=== PATIENT | female | born 1995 | race Caucasian/White ===

== ENCOUNTER 2016-12-14 21:06 | Emergency (ER) | payer OTHER ==
--- NOTE | 2016-12-14 21:19 | PDOC ---
Rapid Medical Evaluation Chief Complaint: Nausea/Vomiting Time Seen by Provider: 12/14/16 21:18 Medical Evaluation: Allergies Allergy/AdvReac Type Severity Reaction Status Date / Time No Known Allergies Allergy Verified 05/11/15 02:41 12/14/16 21:18 I have performed a brief in-person evaluation of this patient. The patient presents with a chief complaint of: epigastric pain, n/v, h/o cholecystectomy Pertinent physical exam findings:+ mild epigastric tenderness I have ordered the following: cbc, cmp, lipase, ruq u/s, UA The patient will proceed to the ED for further evaluation.
[2016-12-14] MEDS ORDERED: MAG HYDROX/AL HYDROX/SIMETH 355 ML ORAL.SUSP PO ONE (21:20)
[2016-12-14] MEDS ORDERED: FAMOTIDINE 20 MG/50 ML IVPB 20 MG in PREMIX 50 IV ONE (21:20)
[2016-12-14 21:21] VITALS: BMI 26.9
--- NOTE | 2016-12-14 21:28 | PDOC ---
History of Present Illness - General History Source: Patient Exam Limitations: No Limitations - History of Present Illness Initial Comments: 12/14/16 21:43 The patient is a 21 year old female with no significant past medical history who presents to the ED with abdominal pain 2 hours prior to arrival. Patient reports she developed abdominal pain about 2 hours ago that became persistent with associated nausea and nonbloody vomiting. Patient denies diarrhea. She states she has an IUD and her LMP was last month. The patient denies fever, chills, cough, SOB, chest pain, and palpitations. Allergies: NKDA Social History: No alcohol, tobacco, or drug use reported. Past Surgical History: appendectomy, cholecystectomy PCP: Dr. Mansoor Feliciano <Diane Gonzalez - Last Filed: 12/15/16 02:34> - General History Source: Patient <OswaldoJesus akers - Last Filed: 12/15/16 02:41> - General Chief Complaint: Pain, Acute Stated Complaint: STOMACH PAIN Time Seen by Provider: 12/14/16 21:18 Past History <Diane Gonzalez - Last Filed: 12/15/16 02:34> - Past Medical History Asthma: No Cancer: No Cardiac Disorders: No Diabetes: No HTN: No Suicide Attempt (Hx): No Seizures: No Thyroid Disease: No - Surgical History Appendectomy: Yes - Immunization History Immunization Up to Date: No - Psycho/Social/Smoking Cessation Hx Anxiety: No Suicidal Ideation: No Smoking Status: No Smoking History: Never smoked Have you smoked in the past 12 months: No Number of Cigarettes Smoked Daily: 0 Hx Alcohol Use: No Drug/Substance Use Hx: No Substance Use Type: None Hx Substance Use Treatment: No <Jesus Armijo - Last Filed: 12/15/16 02:41> - Past Medical History Allergies/Adverse Reactions: Allergies Allergy/AdvReac Type Severity Reaction Status Date / Time No Known Allergies Allergy Verified 12/14/16 21:18 Home Medications: Ambulatory Orders Amox-Tr/K Cl [Augmentin 500Mg Tablet] 1 tab PO BID #14 tablet 12/15/16 Ibuprofen [Motrin] 600 mg PO TID #30 tablet 12/15/16 Pseudoephedrine HCl [Sudafed] 30 mg PO Q6H #20 tablet 12/15/16 Review of Systems - Review of Systems Able to Perform ROS?: Yes Comments:: 12/14/16 21:44 CONSTITUTIONAL: Absent: fever, no chills, no fatigue EYES: Absent: visual changes ENT: Absent: ear pain, no sore throat CARDIOVASCULAR: Absent: chest pain, no palpitations RESPIRATORY: Absent: cough, no SOB GI: +abdominal pain, nausea, vomiting Absent: no constipation, no diarrhea GENITOURINARY: Absent: dysuria, no frequency, no hematuria MUSKULOSKELETAL: Absent: back pain, no arthralgia, no myalgia SKIN: Absent: rash NEURO: Absent: headache <Diane Gonzalez - Last Filed: 12/15/16 02:34> *Physical Exam - Vital Signs Last Vital Signs Temp Pulse Resp BP Pulse Ox 98.7 F 122 H 18 112/57 100 12/14/16 21:19 12/14/16 21:19 12/14/16 21:19 12/14/16 21:19 12/14/16 21:19 - Physical Exam Comments: 12/14/16 21:44 GENERAL: Well-appearing, well-nourished. Mild distress. HEENT: Normocephalic, atraumatic. PERRL, EOM intact. CARDIOVASCULAR: Normal S1, S2. Regular rate and rhythm. PULMONARY: Clear to auscultation bilaterally. ABDOMEN: Soft, non-distended, epigastric tenderness. No rebound or guarding. EXTREMITIES: Normal ROM in all four extremities. No gross deformities. SKIN: Warm, dry. No rash NEUROLOGICAL: No focal neurological deficits. <Diane Gonzalez - Last Filed: 12/15/16 02:34> - Vital Signs Last Vital Signs Temp Pulse Resp BP Pulse Ox 98.7 F 122 H 18 112/57 100 12/14/16 21:19 12/14/16 21:19 12/14/16 21:19 12/14/16 21:19 12/14/16 21:19 <Jesus Armijo - Last Filed: 12/15/16 02:41> ED Treatment Course - LABORATORY CBC & Chemistry Diagram: 12/14/16 21:00 12/14/16 21:00 - RADIOLOGY Radiograph Interpretation: 12/15/16 02:34 EXAM: CT HEAD WITHOUT CONTRAST Reviewed by Imaging salesperson furniture: No acute brain parenchymal abnormality. No hemorrhage, mass or acute territorial infarct. Inflammation paranasal sinuses with near-complete opacification left maxillary sinus. Visualized mastoid air cells clear. <Diane Gonzalez - Last Filed: 12/15/16 02:34> - LABORATORY CBC & Chemistry Diagram: 12/14/16 21:00 12/14/16 21:00 <Jesus Armijo - Last Filed: 12/15/16 02:41> Medical Decision Making - Medical Decision Making 12/15/16 02:39 Dr. Armijo: The scribe's documentation has been prepared under my direction and personally reviewed by me in its entirery. I confirm that the note above accurately reflects all work, treatment, procedures, and medical decision making performed by me. Pt found to have a sinusitis on Ct scan of head. Abdominal US was negative for pathology. Pt Rx Augmentin 500mg PO <Jesus Armijo - Last Filed: 12/15/16 02:41> *DC/Admit/Observation/Transfer - Attestations Scribe Attestion: 12/14/16 21:44 Documentation prepared by Diane Gonzalez, acting as medical receptionist for Jesus Armijo MD <Diane Gonzalez - Last Filed: 12/15/16 02:34> - Discharge Dispostion Admit: No <Jesus Armijo - Last Filed: 12/15/16 02:41> Diagnosis at time of Disposition: Abdominal pain Qualifiers: Abdominal location: right upper quadrant Qualified Code(s): R10.11 - Right upper quadrant pain Sinusitis Qualifiers: Sinusitis location: unspecified location Chronicity: unspecified Qualified Code (s): J32.9 - Chronic sinusitis, unspecified - Discharge Dispostion Disposition: HOME Condition at time of disposition: Stable - Prescriptions Prescriptions: Amox-Tr/K Cl [Augmentin 500Mg Tablet] 1 tab PO BID #14 tablet Ibuprofen [Motrin] 600 mg PO TID #30 tablet Pseudoephedrine HCl [Sudafed] 30 mg PO Q6H #20 tablet - Referrals Referrals: Mansoor Feliciano MD [Primary Care Provider] - Zhou Contreras MD [Staff Physician] - Kendall Driver MD [Staff Physician] - - Patient Instructions Printed Discharge Instructions: DI for Sinusitis, DI for Abdominal Pain-Adult
[2016-12-14] MEDS ORDERED: FAMOTIDINE 20 MG/50 ML IVPB 50 ML IVPB ONE (21:30)
[2016-12-14] MEDS ORDERED: MAG HYDROX/AL HYDROX/SIMETH 30 ML UNIT-DOSE CUP ONE (21:30)
[2016-12-14 21:53] LABS: MCH 27.5 pg (25.7-33.7); MEAN CELL VOLUME 83.3 fl (80-96); MEAN PLT VOLUME 7.8 fl (7.5-11.1); PLATELET COUNT 331 K/MM3 (134-434); RDW 14.8 % (11.6-15.6)
[2016-12-14 22:31] LABS: ALBUMIN 3.9 g/dl (3.4-5.0); ANION GAP 8 (8-16); CALCIUM 8.3 mg/dL (8.5-10.1); CO2 26 mmol/L (21-32); GLUCOSE,RANDOM 93 mg/dL (74-106)
[2016-12-14 22:34] LABS: ALK PHOS 95 U/L (45-117); BILIRUBIN,TOTAL 0.5 mg/dL (0.2-1.0); CREATININE 0.6 mg/dL (0.55-1.02); SGOT/AST 27 U/L (15-37); SGPT/ALT 32 U/L (12-78); TOT PROT 7.3 g/dl (6.4-8.2)
[2016-12-14 23:44] LABS: PLATELET ESTIMATE ADEQUATE (NORMAL)
[2016-12-15] MEDS ORDERED: IBUPROFEN 600 MG TABLET (FP) PO ONE ×2 (02:35→02:42)
[2016-12-15] MEDS ORDERED: AMOX TR/POT CLAV 500MG/125MG TABLETS (FP) PO ONE (02:35)
[2016-12-15] MEDS ORDERED: AMOX TR/POT CLAV 500MG/125MG TABLETS (FP) ONE (02:41)
[2016-12-15] MEDS ORDERED: PSEUDOEPHEDRINE HCL 60 MG TABLET ONE (02:44)
[2016-12-15] MEDS ORDERED: PSEUDOEPHEDRINE HCL 30 MG TABLET PO SCH (02:45)
[2016-12-15 02:55] VITALS: BP 112/70; PULSE 99; TEMP 98.2
== END 2016-12-15 02:55 | disposition home or self-care (01) ==
LOC: JER 21:06
DX: R10.12 Left upper quadrant pain (principal); J32.9 Chronic sinusitis, unspecified
CPT/HCPCS: 36415; 70450-TC; 76705-TC; 80053; 83690; 84703; 85025; 99281-25

== ENCOUNTER 2017-05-14 14:23 | Emergency (ER) | payer OTHER ==
[2017-05-14 14:27] VITALS: BMI 28.7
--- NOTE | 2017-05-14 15:32 | PDOC ---
History of Present Illness - General History Source: Patient Exam Limitations: No Limitations - History of Present Illness Initial Comments: 05/14/17 16:13 The patient is a 21-year-old female A2 who is approximately 8 weeks with significant PMH of hemorrhoids, genital herpes, asthma, who presents with diffuse abdominal pain that began yesterday. Her abdominal pain radiates to her back (worse on the right side) and right lower extremity. She describes the pain as continuous since yesterday and 8/10 in severity. Patient reports diarrhea and bright red blood upon wiping. Patient reports nausea. She also notes tingling in right upper and right lower extremities. She reports a white mucousy vaginal discharge, but denies abnormal vaginal smell. Patient reports wheezing after exertion. Patient notes taking Tylenol but it did not alleviate her symptoms.The patient came to the ER after her AUTOMOTIVE PAINTER HELPER referred her. Patient denies dysuria. Patient denies vaginal bleeding. Patient denies travel. Patient denies cigarette, alcohol, and drug use. Patient reports a previous cholecystectomy and appendectomy. Patient reports taking iron pills and vitamins. Patient reports a FMH of diabetes. <Oren Massey - Last Filed: 05/14/17 16:42> <Ramila Morelos - Last Filed: 05/14/17 19:23> - General Chief Complaint: Pain Stated Complaint: ABD PAIN (8 WKS ) Time Seen by Provider: 05/14/17 15:31 Past History <Oern Massey - Last Filed: 05/14/17 16:42> - Past Medical History Asthma: No Cancer: No Cardiac Disorders: No Diabetes: No HTN: No Suicide Attempt (Hx): No Seizures: No Thyroid Disease: No Other medical history: DENIES. - Surgical History Abdominal Surgery: Yes Appendectomy: Yes Cholecystectomy: Yes - Immunization History Immunization Up to Date: No - Psycho/Social/Smoking Cessation Hx Anxiety: No Suicidal Ideation: No Smoking Status: No Smoking History: Never smoked Have you smoked in the past 12 months: No Number of Cigarettes Smoked Daily: 0 Hx Alcohol Use: No Drug/Substance Use Hx: No Substance Use Type: None Hx Substance Use Treatment: No <Ramila Morelos - Last Filed: 05/14/17 19:23> - Past Medical History Allergies/Adverse Reactions: Allergies Allergy/AdvReac Type Severity Reaction Status Date / Time No Known Allergies Allergy Verified 05/14/17 14:26 Home Medications: Ambulatory Orders Pnv No.122/Iron/Folic Acid [ Multi Tablet] 1 each PO DAILY 05/14/17 Review of Systems - Review of Systems Able to Perform ROS?: Yes Comments:: 05/14/17 16:14 ADULT ROS GENERAL/CONSTITUTIONAL: No fever or chills. No weakness. HEAD, EYES, EARS, NOSE AND THROAT: No change in vision. No ear pain or discharge. No sore throat. CARDIOVASCULAR: No chest pain or palpitations. No lightheadedness.. RESPIRATORY: +Wheezing upon exertion. No cough or hemoptysis. GASTROINTESTINAL:; +Diffuse abdominal pain (radiates to right flank and right lower extremity) +Diarrhea (red blood upon wiping), + Nausea. No vomiting or constipation. GENITOURINARY: +White mucousy vaginal discharge. No dysuria, frequency, or change in urination. No vaginal bleeding. MUSCULOSKELETAL: No joint or muscle swelling or pain. No neck pain.. SKIN: No rash NEUROLOGIC: +Right upper and right lower extremity tingling. No headache, vertigo, loss of consciousness. ENDOCRINE: No increased thirst. HEMATOLOGIC/LYMPHATIC: No anemia, easy bleeding, or history of blood clots. ALLERGIC/IMMUNOLOGIC: No hives or skin allergy. <Oren Massey - Last Filed: 05/14/17 16:42> *Physical Exam - Vital Signs Last Vital Signs Temp Pulse Resp BP Pulse Ox 98.2 F 83 18 125/65 99 05/14/17 14:24 05/14/17 14:24 05/14/17 14:24 05/14/17 14:24 05/14/17 14:24 - Physical Exam Comments: 05/14/17 16:42 ADULT EXAM GENERAL: Awake, alert, and fully oriented, in no acute distress HEAD: No signs of trauma EYES: PERRLA, EOMI, sclera anicteric, conjunctiva clear ENT: Auricles normal inspection, hearing grossly normal, nares patent, oropharynx clear without exudates. Moist mucosa NECK: Normal ROM, supple, no lymphadenopathy, JVD, or masses LUNGS: Breath sounds equal, clear to auscultation bilaterally. No wheezes, and no crackles HEART: Regular rate and rhythm, normal S1 and S2, no murmurs, rubs or gallops ABDOMEN: Soft, nontender, normoactive bowel sounds. No guarding, no rebound. No masses EXTREMITIES: Normal range of motion, no edema. No clubbing or cyanosis. No cords, erythema, or tenderness NEUROLOGICAL: Cranial nerves II through XII grossly intact. Normal speech, normal gait SKIN: Warm, Dry, normal turgor, no rashes or lesions noted. <Oren Massey - Last Filed: 05/14/17 16:42> - Vital Signs Last Vital Signs Temp Pulse Resp BP Pulse Ox 98.2 F 83 18 125/65 99 05/14/17 14:24 05/14/17 14:24 05/14/17 14:24 05/14/17 14:24 05/14/17 14:24 - Physical Exam Comments: : No external lesions. +Moderate white discharge, no odor. Os closed. +R adnexal tenderness. <Ramila Moerlos - Last Filed: 05/14/17 19:23> ED Treatment Course - LABORATORY CBC & Chemistry Diagram: 05/14/17 15:40 05/14/17 15:40 <Oren Massey - Last Filed: 05/14/17 16:42> - LABORATORY CBC & Chemistry Diagram: 05/14/17 15:40 05/14/17 15:40 <Ramila Morelos - Last Filed: 05/14/17 19:23> Medical Decision Making - Medical Decision Making 05/14/17 17:[address] Campbell. Awaiting ultrasound to r/o ectopic. <Ramila Morelos - Last Filed: 05/14/17 19:23> *DC/Admit/Observation/Transfer - Attestations Scribe Attestion: 05/14/17 16:42 Documentation prepared by Oren Massey, acting as medical appliance maker for Ramila Morelos MD. <Oren Massey - Last Filed: 05/14/17 16:42> <Ramila Morelos - Last Filed: 05/14/17 19:23> Diagnosis at time of Disposition: Threatened in early - Discharge Dispostion Disposition: HOME Condition at time of disposition: Stable - Referrals Referrals: Mansoor Feliciano MD [Primary Care Provider] - - Patient Instructions Printed Discharge Instructions: DI for -- Discomforts and Remedies Additional Instructions: please [id number] with your astronaut mission specialist
[2017-05-14 16:24] LABS: BASOPHIL 0.3 % (0-2.0); EOSINOPHIL 0.7 % (0-4.5); MEAN CELL VOLUME 88.3 fl (80-96); MEAN PLT VOLUME 8.5 fl (7.5-11.1); NEUTROPHILS 71.7 % (42.8-82.8); PLATELET COUNT 279 K/MM3 (134-434); WHITE BLOOD COUNT 7.9 K/mm3 (4.0-10.0)
[2017-05-14 16:40] LABS: URINE APPEARANCE CLEAR; URINE BILIRUBIN NEGATIVE (NEGATIVE); URINE BLOOD NEGATIVE (NEGATIVE); URINE COLOR YELLOW; URINE GLUCOSE (UA) NEGATIVE (NEGATIVE); URINE KETONE NEGATIVE (NEGATIVE); URINE LEUK ESTERASE NEGATIVE (NEGATIVE); URINE NITRITE NEGATIVE (NEGATIVE); URINE PROTEIN NEGATIVE (NEGATIVE); URINE UROBILINOGEN NEGATIVE mg/dL (0.2-1.0)
[2017-05-14 17:07] LABS: ALBUMIN 3.6 g/dl (3.4-5.0); ANION GAP 7 (8-16); BILIRUBIN,TOTAL 0.2 mg/dL (0.2-1.0); CALCIUM 8.8 mg/dL (8.5-10.1); CO2 27 mmol/L (21-32); CREATININE 0.5 mg/dL (0.55-1.02); GLUCOSE,RANDOM 95 mg/dL (74-106); SGOT/AST 17 U/L (15-37); SGPT/ALT 29 U/L (12-78); TOT PROT 6.8 g/dl (6.4-8.2)
[2017-05-14 17:22] LABS: ALK PHOS 67 U/L (45-117)
[2017-05-14 18:46] VITALS: BP 105/62; PULSE 68; TEMP 98.4
--- NOTE | 2017-05-14 18:48 | PDOC ---
*Physical Exam - Vital Signs Last Vital Signs Temp Pulse Resp BP Pulse Ox 98.4 F 68 18 105/62 100 05/14/17 18:45 05/14/17 18:45 05/14/17 18:45 05/14/17 18:45 05/14/17 18:45 ED Treatment Course - LABORATORY CBC & Chemistry Diagram: 05/14/17 15:40 05/14/17 15:40 - ADDITIONAL ORDERS Additional order review: Laboratory Results 05/14/17 05/14/17 05/14/17 16:30 15:40 15:40 Sodium 139 Potassium 4.2 Chloride 105 Carbon Dioxide 27 Anion Gap 7 L BUN 7 D Creatinine 0.5 L Creat Clearance w eGFR > 60 Random Glucose 95 Calcium 8.8 Total Bilirubin 0.2 D AST 17 D ALT 29 Alkaline Phosphatase 67 D Total Protein 6.8 Albumin 3.6 Lipase 217 Beta HCG, Quant 91383.6 Urine Color Yellow Urine Appearance Clear Urine pH 5.0 Urine Protein Negative Urine Glucose (UA) Negative Urine Ketones Negative Urine Blood Negative Urine Nitrite Negative Urine Bilirubin Negative Urine Urobilinogen Negative Ur Leukocyte Esterase Negative Blood Type A POSITIVE Antibody Screen Negative 05/14/17 15:40 RBC 4.49 MCV 88.3 MCHC 34.0 RDW 15.0 MPV 8.5 Neutrophils % 71.7 Lymphocytes % 21.6 D Monocytes % 5.7 Eosinophils % 0.7 Basophils % 0.3 *DC/Admit/Observation/Transfer Diagnosis at time of Disposition: Threatened in early - Discharge Dispostion Disposition: HOME Condition at time of disposition: Stable - Referrals Referrals: Mansoor Feliciano MD [Primary Care Provider] - - Patient Instructions Printed Discharge Instructions: DI for -- Discomforts and Remedies Additional Instructions: please [id number] with your rough rice grader - Post Discharge Activity
== END 2017-05-14 18:50 | disposition home or self-care (01) ==
LOC: SUPCPDRO 14:23 → JER 14:23
DX: O20.0 Threatened abortion (principal); Z3A.08 8 weeks gestation of pregnancy; J45.909 Unspecified asthma, uncomplicated; K64.8 Other hemorrhoids; Z87.42 Personal history of other diseases of the female genital tract
CPT/HCPCS: 36415; 76801-TC; 80053; 81003; 83690; 84702; 85025; 86850; 86900; 86901; 87491; 87591; 99281-25

== ENCOUNTER 2017-07-12 09:38 | Emergency (ER) | payer OTHER ==
[2017-07-12 09:51] VITALS: BP 105/56; PULSE 90; TEMP 98; BMI 24.6
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
[2017-07-12] MEDS ORDERED: ACETAMINOPHEN 325 MG TABLET (FP) PO ONE (10:47)
[2017-07-12] MEDS ORDERED: METOCLOPRAMIDE HCL INJECTION 10 MG/2 ML VIAL IVPUSH ONE (10:47)
[2017-07-12] MEDS ORDERED: SODIUM CHLORIDE 0.9% 1000 ML INFUS.BAG IV ONE (10:47)
[2017-07-12] MEDS ORDERED: ACETAMINOPHEN 325 MG TABLET (FP) ONE (11:16)
[2017-07-12] MEDS ORDERED: METOCLOPRAMIDE HCL INJECTION 10 MG/2 ML VIAL ONE (11:16)
[2017-07-12 11:47] LABS: BASOPHIL 0.3 % (0-2.0); EOSINOPHIL 0.1 % (0-4.5); MCH 30.2 pg (25.7-33.7); MCHC 33.8 g/dl (32.0-36.0); MEAN CELL VOLUME 89.1 fl (80-96); MEAN PLT VOLUME 7.9 fl (7.5-11.1); NEUTROPHILS 82.9 % (42.8-82.8); PLATELET COUNT 244 K/MM3 (134-434); RDW 13.7 % (11.6-15.6); URINE APPEARANCE CLOUDY; URINE BILIRUBIN NEGATIVE (NEGATIVE); URINE BLOOD NEGATIVE (NEGATIVE); URINE COLOR DKYELLOW; URINE GLUCOSE (UA) NEGATIVE (NEGATIVE); URINE KETONE NEGATIVE (NEGATIVE); URINE LEUK ESTERASE 2+ (NEGATIVE); URINE NITRITE NEGATIVE (NEGATIVE); URINE PROTEIN NEGATIVE (NEGATIVE); URINE UROBILINOGEN NEGATIVE mg/dL (0.2-1.0); WHITE BLOOD COUNT 7.4 K/mm3 (4.0-10.0)
[2017-07-12 11:56] LABS: URINE BACTERIA FEW /hpf (NONE SEEN); URINE MUCUS RARE; URINE RBC 18 /hpf (0-3); URINE WBC 10 /hpf (3-5)
[2017-07-12 12:04] LABS: ALBUMIN 3.1 g/dl (3.4-5.0); ANION GAP 7 (8-16); CALCIUM 8.2 mg/dL (8.5-10.1); CO2 24 mmol/L (21-32); GLUCOSE,RANDOM 79 mg/dL (74-106); MAGNESIUM 2.1 mg/dL (1.8-2.4)
[2017-07-12 12:22] LABS: ALK PHOS 104 U/L (45-117); BILIRUBIN,TOTAL 0.3 mg/dL (0.2-1.0); CREATININE 0.5 mg/dL (0.55-1.02); SGOT/AST 22 U/L (15-37); SGPT/ALT 26 U/L (12-78); TOT PROT 6.7 g/dl (6.4-8.2)
--- NOTE | 2017-07-13 09:43 | EKG ---
Test Reason : Blood Pressure : / mmHG Vent. Rate : 085 BPM Atrial Rate : 085 BPM P-R Int : 136 ms QRS Dur : 084 ms QT Int : 344 ms P-R-T Axes : 052 057 -01 degrees QTc Int : 409 ms NORMAL SINUS RHYTHM T WAVE ABNORMALITY, CONSIDER INFERIOR ISCHEMIA ABNORMAL ECG NO PREVIOUS ECGS AVAILABLE Confirmed by MADISYN CHO MD ([id number]) on 07/13/2017 9:43:11 AM Referred By: Confirmed By:MADISYN CHO MD
== END 2017-07-12 13:03 | disposition home or self-care (01) ==
LOC: JER 09:38
PROC: 3E033GC Introduction of Other Therapeutic Substance into Peripheral Vein, Percutaneous Approach (ICD-10-PCS; principal; 2017-07-12)
DX: O99.89 Other specified diseases and conditions complicating pregnancy, childbirth and the puerperium (principal); R51 Headache; M54.89 Other dorsalgia; Z3A.14 14 weeks gestation of pregnancy
CPT/HCPCS: 36415; 80053; 81003; 81015; 83735; 84702; 85025; 93005; 93010; 96374; 99282-25

== ENCOUNTER 2017-12-15 02:12 | Inpatient (IN) | payer OTHER ==
[2017-12-15] MEDS: DEXTROSE 5%-LACTATED RINGERS 1,000 ML IV SCH (03:45)
[2017-12-15 04:09] LABS: BASO % 0.3 % (0-2.0); EOS % 0.6 % (0-4.5); HEMATOCRIT 39.6 % (32.4-45.2); HEMOGLOBIN 13.7 GM/dL (10.7-15.3); LYMPH % 18.6 % (8-40); MCH 32.1 pg (25.7-33.7); MCHC 34.6 g/dl (32.0-36.0); MEAN CELL VOLUME 92.6 fl (80-96); MONO % 5.6 % (3.8-10.2); NEUT % 74.9 % (42.8-82.8); PLATELET COUNT 206 K/MM3 (134-434); RBC 4.28 M/mm3 (3.60-5.2); RDW 13.9 % (11.6-15.6)
[2017-12-15 04:24] LABS: INR 0.96 (0.82-1.09); PROTHROMBIN TIME (PATIENT) 10.9 SEC (9.98-11.88)
[2017-12-15 04:26] LABS: ACTIVATED PTT 28.5 SECONDS (26.9-34.4)
[2017-12-15 04:29] VITALS: BMI 29.2
[2017-12-15 04:36] LABS: ANION GAP 8 (8-16); BLOOD UREA NITROGEN 7 mg/dL (7-18); CALCIUM 7.8 mg/dL (8.5-10.1); CHLORIDE 108 mmol/L (98-107); CO2 22 mmol/L (21-32); CREATININE 0.5 mg/dL (0.55-1.02); GLUCOSE,RANDOM 130 mg/dL (74-106); POTASSIUM 3.5 mmol/L (3.5-5.1); SODIUM 138 mmol/L (136-145)
[2017-12-15] MEDS ORDERED: AMPICILLIN SODIUM 2 GM VIAL ONE (05:41)
[2017-12-15] MEDS ORDERED: AMPICILLIN - 2 GM in SODIUM CHLORIDE 100 ML IVPB ONE (06:00)
[2017-12-15] MEDS ORDERED: CITRIC ACID/SODIUM CITRATE 30 ML UNIT-DOSE CUP PO ONE (07:46)
--- NOTE | 2017-12-15 07:50 | PN ---
Progress Note (short form) - Note Progress Note: cx 3 cm, 80 vx -2, fhr cat 1, contraction q 2 min, had gush of blood advised c/s
[2017-12-15] MEDS ORDERED: OXYTOCIN 20 UNITS in 0.9% NS 20 UNIT/1,000 ML INFUS.BAG IV ONE (07:54)
[2017-12-15] MEDS ORDERED: OXYTOCIN 20 UNITS in 0.9% NS 40 UNIT/2,000 ML INFUS.BAG IV ONE (07:56)
[2017-12-15] MEDS ORDERED: ceFAZolin SODIUM 1 GM VIAL ONE (07:57)
[2017-12-15] MEDS ORDERED: morphine SULFATE/Preservative Free 0.5 MG/ML (1cc Syringe) ONE (07:58)
[2017-12-15] MEDS: ELECTROLYTE-148 SOLN 1,000 ML IV SCH (08:05)
[2017-12-15] MEDS ORDERED: ePHEDrine SULFATE 50 MG/1 ML AMPULE ONE (08:26)
[2017-12-15] MEDS ORDERED: OXYTOCIN 10 UNITS/ML VIAL ONE (08:37)
[2017-12-15] MEDS ORDERED: morphine SULFATE/Preservative Free 0.5 MG/ML (1cc Syringe) EP ONE (08:42)
[2017-12-15] MEDS ORDERED: ONDANSETRON 4 MG/2 ML VIAL IVPUSH PRN (08:42)
[2017-12-15] MEDS ORDERED: diphenhydrAMINE HCL 25 MG CAPSULE (FP) PO PRN (09:09)
[2017-12-15] MEDS ORDERED: BENZOCAINE 20% 57 GM BOTTLE TP PRN (09:09)
[2017-12-15] MEDS ORDERED: oxyCODONE HCL 5 MG TABLET PO PRN ×2 (09:09)
[2017-12-15] MEDS ORDERED: METHYLERGONOVINE MALEATE 0.2 MG/1 ML AMP IM PRN (09:09)
[2017-12-15] MEDS ORDERED: IBUPROFEN 600 MG TABLET (FP) PO PRN (09:09)
[2017-12-15] MEDS ORDERED: WITCH HAZEL 50% (TUCKS) 40 PAD/JAR PAD TP PRN (09:09)
[2017-12-15] MEDS ORDERED: BENZOCAINE 28 GM HEMORRHOIDAL OINTMENT PR PRN (09:09)
[2017-12-15] MEDS ORDERED: IBUPROFEN 800 MG/8 ML IJ IVPB PRN (09:09)
[2017-12-15] MEDS ORDERED: DEXTROSE 5%-LACTATED RINGERS 1,000 ML IV SCH (09:15)
[2017-12-15] MEDS ORDERED: OXYTOCIN 20 UNITS in 0.9% NS 20 UNIT/1,000 ML INFUS.BAG IV SCH ×2 (09:15→09:30)
--- NOTE | 2017-12-15 09:19 | HP ---
Past Medical History - Primary Care Physician PCP:: Vishal Irwin - Admission Chief Complaint: 37 weeks, labor, low lying placenta previa , vaginal bleeding in labor History of Present Illness: 22 yo f , edc by sono 12/30/16 ,37 weeks , c/o contraction, cx 2 cm 70 vx -2 mi, fhr cat 1, contraction q 2 min, hx of low lying previa, no vaginal bleeding on admission. History Source: Patient Limitations to Obtaining History: No Limitations - Past Medical History ...: 5 ...Para: 2 ...Term: 2 ...: 1 ...Spon : 1 ...Induced : 1 ...Multiple Gestation: 0 ...LMP: 03/25/17 ... Weeks Gestation by Dates: 37.6 ...EDC by Dates: 12/30/17 ...EDC by Sono: 12/30/17 Infectious Disease: Yes: STD's (hx chlamydia, txed) - Past Surgical History Hx Myomectomy: No Hx Transabdominal Cerclage: No - Smoking History Smoking history: Never smoked Have you smoked in the past 12 months: No Aproximately how many cigarettes per day: 0 - Alcohol/Substance Use Hx Alcohol Use: No - Social History Usual Living Arrangement: Yes: With Spouse History of Recent Travel: No Home Medications - Allergies Allergies/Adverse Reactions: Allergies Allergy/AdvReac Type Severity Reaction Status Date / Time No Known Allergies Allergy Verified 12/15/17 02:50 - Home Medications Home Medications: Ambulatory Orders No122/Iron/Folic Acid [ Multi Tablet] 1 each PO DAILY 05/14/17 Ferrous Sulfate 325 mg PO DAILY 10/24/17 Valacyclovir HCl [Valtrex] 500 mg PO DAILY 12/15/17 Review of Systems - Review of Systems Constitutional: reports: No Symptoms Eyes: reports: No Symptoms HENT: reports: No Symptoms Neck: reports: No Symptoms Cardiovascular: reports: No Symptoms Respiratory: reports: No Symptoms Gastrointestinal: reports: No Symptoms Genitourinary: reports: No Symptoms Musculoskeletal: reports: No Symptoms Integumentary: reports: No Symptoms Neurological: reports: No Symptoms Endocrine: reports: No Symptoms Hematology/Lymphatic: reports: No Symptoms Psychiatric: reports: No Symptoms Physical Exam - Maternity Vital Signs: Vital Signs Temperature 98.4 F 12/15/17 06:00 Pulse Rate 77 12/15/17 07:00 Respiratory Rate 20 12/15/17 07:00 Blood Pressure 109/61 12/15/17 07:00 O2 Sat by Pulse Oximetry (%) Constitutional: Yes: Well Nourished, No Distress, Calm Eyes: Yes: WNL, Conjunctiva Clear, EOM Intact HENT: Yes: WNL, Atraumatic, Normocephalic Neck: Yes: WNL, Supple, Trachea Midline Cardiovascular: Yes: WNL, Regular Rate and Rhythm Breast(s): Yes: WNL - Abdominal Exam/OB Fundal Height: 40 Number of Fetuses: Single Presentation: Vertex Regularity: Regular Intensity: Mod/Strong Monitor Mode: External Heart Rate Location: [facility] Category: I Accelerations: Uniform Decelerations: None - Vaginal Exam/OB Vaginal Bleediing: No Dilatation (cm): 2 cm Effacement (%): 70 Amniotic Membrane Status: Intact Presentation: Vertex/Position Station: -2 - Physical Exam Extremities: Yes: WNL Edema: Yes Edema: LLE: Trace, RLE: Trace Deep Tendon Reflex Grade: Normal +2 Psychiatric: Yes: WNL - Labs Lab Results: CBC, BMP 12/15/17 03:45 12/15/17 03:45 Hemorrhage Risk Assessment - Risk Factors Medium Risk Factors: Yes: None High Risk Factors: Yes: Active bleeding on admission Risk Score: 3 Risk Level: High Risk Problem List - Problems (1) with 37 weeks completed gestation Code(s): Z3A.37 - 37 WEEKS GESTATION OF (2) Labor established Code(s): KFJ7830 - (3) Low lying placenta nos or without hemorrhage, third trimester Code(s): O44.43 - LOW LYING PLACENTA NOS OR WITHOUT HEMOR, THIRD TRIMESTER (4) Labor established Code(s): OIW8861 - Assessment/Plan admit , FHM, , watch for vaginal bleeding , if bleeding will do c/s, rba discussed
[2017-12-15] MEDS ORDERED: valACYclovir HCL 500 MG TABLET (FP) PO SCH (10:00)
[2017-12-15] MEDS ORDERED: AMPICILLIN - 1 GM in SODIUM CHLORIDE 100 ML IVPB SCH (10:00)
[2017-12-15] MEDS ORDERED: IBUPROFEN 800 MG/8 ML IJ IVPB ONE (10:38)
[2017-12-15] MEDS: CEFAZOLIN 1 GM/D5W 1 GM/50 ML BAG IVPB SCH (16:04)
[2017-12-16] MEDS: CEFAZOLIN 1 GM/D5W 1 GM/50 ML BAG IVPB SCH (00:17)
[2017-12-16] MEDS: ACETAMINOPHEN 325 MG TABLET (FP) PO PRN ×2 (08:52→15:50)
[2017-12-16] MEDS: IBUPROFEN 600 MG TABLET (FP) PO PRN ×2 (08:52→15:49)
[2017-12-16] MEDS: SIMETHICONE 80 MG TAB.CHEW (FP) PO PRN ×2 (08:52→15:49)
[2017-12-16] MEDS: DEXTROSE 5%-LACTATED RINGERS 1,000 ML IV SCH (08:53)
[2017-12-16] MEDS: ELECTROLYTE-148 SOLN 1,000 ML IV SCH (08:53)
[2017-12-16] MEDS ORDERED: BISACODYL 10 MG SUPP.RECT RC PRN (09:09)
[2017-12-16] MEDS ORDERED: DIPHTH,PERTUSS(ACELL),TET 0.5 ML DISP.SYRIN IM ONE (10:00)
[2017-12-16] MEDS ORDERED: FLU VACC QS2017-18 36MOS UP/PF 60 MCG/0.5 ML SYRINGE IM ONE (10:00)
[2017-12-16 10:08] LABS: BASO % 0.3 % (0-2.0); EOS % 0.9 % (0-4.5); HEMATOCRIT 32.1 % (32.4-45.2); LYMPH % 11.1 % (8-40); MCH 32.2 pg (25.7-33.7); MCHC 34.2 g/dl (32.0-36.0); MEAN CELL VOLUME 94.2 fl (80-96); MEAN PLT VOLUME 8.6 fl (7.5-11.1); MONO % 4.7 % (3.8-10.2); PLATELET COUNT 184 K/MM3 (134-434); RDW 14.4 % (11.6-15.6); WHITE BLOOD COUNT 11.2 K/mm3 (4.0-10.0)
[2017-12-16] MEDS: ENOXAPARIN NA (PORCINE) 40 MG/0.4 ML DISP.SYRIN SQ SCH (10:15)
--- NOTE | 2017-12-16 13:23 | PN ---
Progress Note (short form) - Note Progress Note: ANESTHESIOLOGY POST-OP CHECK 22F s/p repeat under spinal anesthesia POD #1. No acute complaints. Pain 2/10 and tolerable. Denies N/V, backache, headache. Ambulating , voiding. Vital Signs Temperature 98.2 F 12/16/17 10:00 Pulse Rate 92 H 12/16/17 10:00 Respiratory Rate 20 12/16/17 10:00 Blood Pressure 101/63 12/16/17 10:00 O2 Sat by Pulse Oximetry (%) 100 12/15/17 10:28 Active Medications Acetaminophen (Tylenol -) 650 mg PO Q4H PRN PRN Reason: PAIN Last Admin: 12/16/17 08:52 Dose: 650 mg Benzocaine (Americaine 20% [place] -) 1 spray TP PRN PRN PRN Reason: Pain - Topical Benzocaine (Americaine Ointment -) 1 applic [place] PRN PRN PRN Reason: Pain - Topical Bisacodyl (Dulcolax Suppository -) 10 mg RC PRN PRN PRN Reason: CONSTIPATION Diphenhydramine HCl (Benadryl Injection -) 25 mg IVPUSH Q4H PRN PRN Reason: Pruritis Last Admin: 12/16/17 00:19 Dose: 25 mg Diphenhydramine HCl (Benadryl -) 25 mg PO Q8H PRN PRN Reason: FOR ITCHING Enoxaparin Sodium (Lovenox -) 40 mg SQ DAILY [facility] Last Admin: 12/16/17 10:15 Dose: 40 mg Dextrose/Lactated Ringer's (D5-Lr -) 1,000 mls @ 125 mls/hr IV ASDIR [facility] Last Admin: 12/16/17 08:53 Dose: Not Given Parenteral Electrolytes (Plasma-Lyte 148 -) 1,000 mls @ 125 mls/hr IV ASDIR [facility] Last Admin: 12/16/17 08:53 Dose: Not Given Dextrose/Lactated Ringer's (D5-Lr -) 1,000 mls @ 125 mls/hr IV ASDIR [facility] Last Admin: 12/16/17 10:13 Dose: Not Given Oxytocin/Sodium Chloride (Normal Saline+20 Units Oxytocin -) 20 unit in 1,000 mls @ 125 mls/hr IV ASDIR [facility] Last Admin: 12/16/17 10:13 Dose: Not Given Ibuprofen (Motrin -) 600 mg PO Q4H PRN PRN Reason: PAIN Last Admin: 12/16/17 08:52 Dose: 600 mg Ibuprofen (Motrin -) 600 mg PO Q4H PRN PRN Reason: PAIN LEVEL 1 - 3 Ibuprofen (Caldolor Injection -) 800 mg IVPB Q6H PRN PRN Reason: PAIN > 5 if PO not effective. Last Admin: 12/15/17 10:45 Dose: 800 mg Methylergonovine Maleate (Methergine Injection -) 0.2 mg IM Q4H PRN PRN Reason: EXCESSIVE BLEEDING Ondansetron HCl (Zofran Injection) 4 mg IVPUSH Q4H PRN PRN Reason: NAUSEA Oxycodone HCl (Roxicodone -) 5 mg PO Q4H PRN PRN Reason: PAIN LEVEL 4 - 6 Oxycodone HCl (Roxicodone -) 10 mg PO Q4H PRN PRN Reason: PAIN LEVEL 7 - 10 Senna/Docusate Sodium (Pericolace -) 1 tablet PO HS PRN PRN Reason: CONSTIPATION Simethicone (Mylicon -) 80 mg PO Q4H PRN PRN Reason: GAS Last Admin: 12/16/17 08:52 Dose: 80 mg Witch Leslye/Glycerin (Tucks Pads -) 1 pad TP PRN PRN PRN Reason: Pain - Topical Gen: Awake, alert. No apparent anesthesia complications. Pain controlled. Continue management as per primary team.
--- NOTE | 2017-12-16 15:25 | PN ---
Progress Note (short form) - Note Progress Note: pod 1 s/p c/s doing well, no excess vaginal bleeding CBC, BMP 12/16/17 09:45 12/15/17 03:45 Last Vital Signs Temp Pulse Resp BP Pulse Ox 98.2 F 92 H 20 101/63 100 12/16/17 10:00 12/16/17 10:00 12/16/17 10:00 12/16/17 10:00 12/15/17 10:28 abdomen soft, no cva , incision dry, clean no calf tenderness lochia mild plan ambulate , advance diet Problem List - Problems (1) with 37 weeks completed gestation Code(s): Z3A.37 - 37 WEEKS GESTATION OF (2) Labor established Code(s): [id number] - (3) Low lying placenta nos or without hemorrhage, third trimester Code(s): O44.43 - LOW LYING PLACENTA NOS OR WITHOUT HEMOR, THIRD TRIMESTER (4) Labor established Code(s): [id number] -
--- NOTE | 2017-12-16 20:13 | OP ---
DATE OF OPERATION: 12/15/2017 PREOPERATIVE DIAGNOSES: , 37 weeks; labor; low-lying placenta previa with vaginal bleeding in labor. POSTOPERATIVE DIAGNOSES: , 37 weeks; labor; low-lying placenta previa with vaginal bleeding in labor. PROCEDURE: Primary low-segment transverse section. SURGEON: Prema Irwin MD DATA SECURITY CONSULTANT: URIAH Lujan ANESTHESIA: Spinal. ANESTHESIOLOGIST: Arun Workman MD ESTIMATED BLOOD LOSS: 700 mL. FINDINGS: The placenta was low, extending into the cervix. DESCRIPTION: Patient was taken to operating room. Adequate spinal anesthesia. Abdomen and perineum was prepped and draped. Pfannenstiel abdominal skin incision was made, abdominal wall was cut layer by layer until peritoneum was exposed and incised. Upon entering abdominal cavity, lower uterine segment was identified and uterovesical fold of peritoneum established, bladder was pushed down. Then with the lower blade of the Elva retractor in pelvis, a low transverse uterine incision was made, incision extended laterally. Amniotic sac was entered. Placenta was posterior and then extending into the cervical area. Amniotic sac was entered, clear fluid. Head delivered, nasopharynx was suctioned. A live baby was delivered without any difficulty. Placenta was delivered manually. Uterine cavity was cleaned of all remaining tissue. No active bleeding was seen. Uterine incision was closed in 2 layers, 1st layer with 0 Biosyn continuous suture, and the 2nd layer with 0 Biosyn imbricating the 1st layer. Bladder flap was closed with 0 Biosyn continuous suture. Both tubes and ovaries were checked, were normal, no active bleeding was seen. All the lap pad, sponge and instrument count were correct. Then peritoneum was closed with 0 Biosyn continuous suture. Muscles were brought together with interrupted suture of 0 Biosyn. Fascia was closed with 0 Biosyn continuous suture, subcutaneous fat with interrupted suture of 0 Biosyn, and the skin was closed with alyssa. Patient tolerated procedure well, left the OR in good condition. PREMA IRWIN M.D. /[id number]
[2017-12-17] MEDS: IBUPROFEN 600 MG TABLET (FP) PO PRN ×4 (00:38→23:01)
--- NOTE | 2017-12-17 07:19 | PN ---
Progress Note (short form) - Note Progress Note: pod 2 s/p c/s , doing well, ambulating CBC, BMP 12/16/17 09:45 12/15/17 03:45 Last Vital Signs Temp Pulse Resp BP Pulse Ox 98.3 F 80 20 107/71 100 12/16/17 21:00 12/16/17 21:00 12/16/17 21:00 12/16/17 21:00 12/15/17 10:28 abdomen soft, no distension, no cva incision dry, clean no calf tenderness impression pod 2 afebrile . doing well ambulating plan cbc in am. pain management Problem List - Problems (1) with 37 weeks completed gestation Code(s): Z3A.37 - 37 WEEKS GESTATION OF (2) Labor established Code(s): ZUH6249 - (3) Low lying placenta nos or without hemorrhage, third trimester Code(s): O44.43 - LOW LYING PLACENTA NOS OR WITHOUT HEMOR, THIRD TRIMESTER (4) Labor established Code(s): [id number] -
[2017-12-17] MEDS: ENOXAPARIN NA (PORCINE) 40 MG/0.4 ML DISP.SYRIN SQ SCH (10:25)
[2017-12-17] MEDS: ACETAMINOPHEN 325 MG TABLET (FP) PO PRN ×3 (11:28→22:59)
[2017-12-17] MEDS: SIMETHICONE 80 MG TAB.CHEW (FP) PO PRN ×3 (11:29→22:59)
[2017-12-17] MEDS ORDERED: SENNOSIDES/DOCUSATE COMBO (SENNA PLUS) TABLET (UD) PO PRN (22:00)
--- NOTE | 2017-12-18 07:53 | PN ---
Post Progress Note Post Day: 3 Type of Delivery: Primary C/S Vital Signs: Vital Signs Temperature 98.0 F 12/17/17 22:00 Pulse Rate 78 12/17/17 22:00 Respiratory Rate 20 12/17/17 22:00 Blood Pressure 118/75 12/17/17 22:00 O2 Sat by Pulse Oximetry (%) 100 12/15/17 10:28 Breast Exam: Yes: Soft Uterus: Yes: Fundus Firm Incision: Yes: Shaan intact Abdomen/GI: Yes: Abdomen soft Lochia: Yes: Rubra Lochia, amount: Small Extremities: Yes: Calves non-tender Perineum: Yes: Intact Activity: Ambulating - Labs Labs: CBC WBC 11.2 K/mm3 (4.0-10.0) H 12/16/17 09:45 RBC 3.40 M/mm3 (3.60-5.2) L D 12/16/17 09:45 Hgb 11.0 GM/dL (10.7-15.3) D 12/16/17 09:45 Hct 32.1 % (32.4-45.2) L D 12/16/17 09:45 MCV 94.2 fl (80-96) 12/16/17 09:45 MCH 32.2 pg (25.7-33.7) 12/16/17 09:45 MCHC 34.2 g/dl (32.0-36.0) 12/16/17 09:45 RDW 14.4 % (11.6-15.6) 12/16/17 09:45 Plt Count 184 K/MM3 (134-434) 12/16/17 09:45 MPV 8.6 fl (7.5-11.1) 12/16/17 09:45 Neutrophils % 83.0 % (42.8-82.8) H 12/16/17 09:45 Lymphocytes % 11.1 % (8-40) D 12/16/17 09:45 Monocytes % 4.7 % (3.8-10.2) 12/16/17 09:45 Eosinophils % 0.9 % (0-4.5) 12/16/17 09:45 Basophils % 0.3 % (0-2.0) 12/16/17 09:45 Assessment/Plan oob reg diet dc home
[2017-12-18 08:36] LABS: BASO % 0.5 % (0-2.0); EOS % 2.8 % (0-4.5); HEMATOCRIT 32.9 % (32.4-45.2); HEMOGLOBIN 11.2 GM/dL (10.7-15.3); LYMPH % 19.7 % (8-40); MCHC 33.9 g/dl (32.0-36.0); MEAN CELL VOLUME 94.3 fl (80-96); MEAN PLT VOLUME 8.1 fl (7.5-11.1); MONO % 6.3 % (3.8-10.2); NEUT % 70.7 % (42.8-82.8); PLATELET COUNT 215 K/MM3 (134-434); RBC 3.49 M/mm3 (3.60-5.2); RDW 14.6 % (11.6-15.6); WHITE BLOOD COUNT 8.2 K/mm3 (4.0-10.0)
[2017-12-18 08:39] VITALS: BP 116/72; PULSE 66; TEMP 98.5
[2017-12-18] MEDS: ENOXAPARIN NA (PORCINE) 40 MG/0.4 ML DISP.SYRIN SQ SCH (09:04)
--- NOTE | 2017-12-19 13:44 | PATH ---
Surgical Pathology Report Patient Name: HENRIETTA REARDON [facility]. Rec. #: [id number] /Age/Gender: 1995 (Age: 22) / F Account: [id number] Location: [facility] OBS/TELEVISION REPAIRER Taken: 12/15/2017 Received: 12/17/2017 Reported: 12/19/2017 Physicians: Vishal Irwin M.D. Specimen(s) Received PLACENTA Clinical History , 2011, 2013 SABx1, TTOP x1 37.6 weeks gestation, history of HSV 2, low lying placenta, in labor Final Diagnosis PLACENTA, SECTION: 436 g THIRD TRIMESTER PLACENTA WITH TRIVASCULAR UMBILICAL CORD, FOCAL INTRAPARENCHYMAL HEMORRHAGE (~10% OF PLACENTAL SURFACE), AND UNREMARKABLE PLACENTAL MEMBRANES. Electronically Signed Alva Baptiste M.D. Gross Description The specimen is received fresh labeled placenta and is a 436 gram, 15.5 x 15.0 x 2.1 cm. placenta with attached membranes and umbilical cord. The attached membranes are sahu, translucent with focal opacities and insert marginally. The umbilical cord measures 26 cm. in length and averages 1.2 cm. in diameter. The cord inserts eccentrically, 4 cm. to the nearest margin. No true knots or strictures are identified. Cut surface of the umbilical cord reveals 3 vessels. The surface is ma-blue with minimal fibrin deposition and appropriate caliber vessels. The maternal surface is red-brown with focal defects. Sectioning reveals a 1.7 cm in greatest dimension hemorrhagic intraparenchymal lesion. The remaining placental parenchyma is red-brown and spongy. Boiler Control Technician sections are submitted in 4 cassettes as follows: 1-membrane roll and umbilical cord; 2-lesion; 3-4-full thickness sections placenta. /12/18/2017 saudi12/18/2017
--- NOTE | 2017-12-25 09:40 | DS ---
Physical Exam-TOUR BUS DRIVER Vital Signs: Vital Signs Temperature 98.5 F 12/18/17 08:38 Pulse Rate 66 12/18/17 08:38 Respiratory Rate 20 12/18/17 08:38 Blood Pressure 116/72 12/18/17 08:38 O2 Sat by Pulse Oximetry (%) 100 12/15/17 10:28 Constitutional: Yes: Well Nourished, No Distress, Calm Eyes: Yes: WNL, Conjunctiva Clear, EOM Intact HENT: Yes: WNL, Atraumatic, Normocephalic Neck: Yes: WNL, Supple, Trachea Midline Cardiovascular: Yes: WNL, Regular Rate and Rhythm Respiratory: Yes: WNL, Regular, CTA Bilaterally Gastrointestinal: Yes: WNL ...Rectal Exam: Yes: WNL Renal/: Yes: WNL ....Post : Yes: Uterus firm, Uterus non-tender, Slight lochia rubra Breast(s): Yes: WNL Musculoskeletal: Yes: WNL Extremities: Yes: WNL Edema: No Integumentary: Yes: WNL Wound/Incision: Yes: Clean/Dry, Well Approximated, [place] Intact Neurological: Yes: WNL, Alert, Oriented ...Motor Strength: WNL Psychiatric: Yes: WNL, Alert, Oriented Labs: CBC, BMP 12/18/17 08:00 12/15/17 03:45 Delivery - Delivery Section: Primary (for low lying placenta previa , vaginal bleeding in labor. no complication) Type of Anesthesia: Spinal EBL (cc): 700 Delivery, Single - Stages of Labor Date 1st Stage Initiatied: 12/15/17 Time 1st Stage Initiated: 01:00 Date of Delivery: 12/15/17 Time of Delivery: 08:38 Time Placenta Delivered: 08:39 Placenta: Yes: Expressed - Condition of Vehicle Glass Technician/Concrete Stone Finisher Present: Yes Name: Tosin Lerner Infant Gender: Female Weight: 6 lb 3 oz Position: Right, OP Total Hours ROM (Hrs/Mins): 2 minutes - 1 Minute Total Score: 9 5 Minutes Total Score: 9 - Feeding Plan Initial Plan: Elected not to breastfeed exclusively throughout hospitalization Discharge Summary Reason For Visit: LABOR ADMIT Other Procedures: primary LST c/s Condition: Good - Instructions Diet, Activity, Other Instructions: go to clinic on sunday for staple removal Referrals: Vishal Irwin MD [Family Provider] - Disposition: HOME - Home Medications Comprehensive Discharge Medication List: Ambulatory Orders No122/Iron/Folic Acid [ Multi Tablet] 1 each PO DAILY 05/14/17 Ferrous Sulfate 325 mg PO DAILY 10/24/17 Valacyclovir HCl [Valtrex] 500 mg PO DAILY 12/15/17 Ibuprofen [Motrin Ib] 600 mg PO QID #20 tablet 12/18/17
== END 2017-12-18 09:50 | disposition home or self-care (01) | DRG 540 ==
LOC: JDEL 02:12 → JLDR 03:00 → J3W 11:30
PROVIDERS: ADMIT Obstetrics & Gynecology; ATTEND Obstetrics & Gynecology
PROC: 10D00Z1 Extraction of Products of Conception, Low, Open Approach (ICD-10-PCS; principal; 2017-12-15)
DX: O44.53 Low lying placenta with hemorrhage, third trimester (principal); Z3A.37 37 weeks gestation of pregnancy; Z37.0 Single live birth
CPT/HCPCS: 36415; 71046-TC-FY; 80048; 85025; 85610; 85730; 86593; 86850; 86900; 86901; 88307-TC; 90686; 90715; G0008

== ENCOUNTER 2018-08-02 20:25 | Emergency (ER) | payer OTHER ==
[2018-08-02 20:29] VITALS: BP 116/69; PULSE 108; TEMP 98.9; BMI 27.6
--- NOTE | 2018-08-02 20:29 | PDOC ---
Rapid Medical Evaluation Time Seen by Provider: 08/02/18 20:26 Medical Evaluation: Allergies Allergy/AdvReac Type Severity Reaction Status Date / Time No Known Allergies Allergy Verified 12/15/17 02:50 08/02/18 20:27 Pt presents to the ED for a bite to her L posterior lower leg. Pt states she noticed a bite approximately 3 days ago. Since then it has developed redness and pus around the site Exam: cellulitic area to the L lower extremity Orders: Nothing Pt to proceed to the ED for further evaluation Discharge Disposition - Diagnosis Insect bite - Referrals Referrals: Mansoor Feliciano MD [Primary Care Provider] - - Patient Instructions - Post Discharge Activity
--- NOTE | 2018-08-02 21:05 | PDOC ---
History of Present Illness - General Chief Complaint: Bite Stated Complaint: BITE Time Seen by Provider: 08/02/18 20:26 History Source: Patient Exam Limitations: No Limitations - History of Present Illness Initial Comments: 08/02/18 21:00 HISTORY OF PRESENT ILLNESS: This is a 22-year-old woman who denies medical history presents emergency departments with leg pain and which she believes is a bug bite noted to the posterior aspect of the left calf. Patient states presently 3 days ago she thought she had an insect bite and multiple pockets of pus were forming. Patient states the pockets of pus have begun to drain spontaneously. Patient became concerned as the surrounding area of erythema has increased over the past 2 days. She denies any fevers, chills, streaking. No recent travel or sick contacts. PAST MEDICAL HISTORY: Denies past medical history SURGICAL HISTORY: Denies ALLERGIES: No known drug allergies REVIEW OF SYSTEMS General/Constitutional: Denies fever or chills. Denies weakness, weight change. HEENT: Denies change in vision. Denies ear pain or discharge. Denies sore throat. Cardiovascular: Denies chest pain or shortness of breath. Respiratory: Denies cough, wheezing, or hemoptysis. Gastrointestinal: Denies nausea, vomiting, diarrhea or constipation. Denies rectal bleeding. Genitourinary: Denies dysuria, frequency, or change in urination. Musculoskeletal: Denies joint or muscle swelling or pain. Denies neck or back pain. Skin and breasts: "Insect bite to left calf." Neurologic: Denies headache, vertigo, loss of consciousness, or loss of sensation. Psychiatric: Denies depression or anxiety. Endocrine: Denies increased thirst. Denies abnormal weight change. Hematologic/Lymphatic: Denies anemia, easy bleeding, or history of blood clots. Allergic/Immunologic: Denies hives or skin allergy. Denies latex allergy. PHYSICAL EXAM General Appearance: Well-appearing, appropriately dressed. No apparent distress , no intoxication. HEENT: EOMI, PERRLA, normal ENT inspection, normal voice, TMs normal, pharynx normal. No conjunctival pallor. No photophobia, scleral icterus. Neck: Supple. Trachea midline. No tenderness, rigidity, carotid bruit, stridor , lymphadenopathy, or thyromegaly. Respiratory/Chest: Lungs CTAB. No shortness of breath, chest tenderness, respiratory distress, accessory muscle use. No crackles, rales, rhonchi, stridor , wheezing, dullness Cardiovascular: RRR. S1, S2. No JVD, murmur, bradycardia, tachycardia. Vascular Pulses: Dorsalis-Pedis (R): 2+, Dorsalis-Pedis (L): 2+ Gastrointestinal/Abdominal: Normal bowel sounds. Abdomen soft, non-distended. No tenderness or rebound tenderness. No organomegaly, pulsatile mass, guarding, hernia, hepatomegaly, splenomegaly. Lymphatic: No adenopathy, tenderness. Musculoskeletal/Extremities: Normal inspection. FROM of all extremities, normal capillary refill. Pelvis Stable. No CVA tenderness. No tenderness to extremities, pedal edema, swelling, erythema or deformity. Integumentary: 7 x 3 cm area of erythema surrounding multiple superficial pockets of pus to the posterior aspect of the left calf. Pockets of pus are spontaneously draining. No fluctuance present Neurologic: global sales director II-XII intact. Fully oriented, alert. Appropriate mood/affect. Motor strength 5/5. No appreciable EOM palsy, facial droop or sensory deficit. Past History - Past Medical History Allergies/Adverse Reactions: Allergies Allergy/AdvReac Type Severity Reaction Status Date / Time No Known Allergies Allergy Verified 08/02/18 20:29 Home Medications: Ambulatory Orders Cephalexin [Keflex] 500 mg PO QID #28 capsule 08/02/18 Sulfamethoxazole/Trimethoprim [Bactrim Ds -] 1 tab PO BID #14 tablet 08/02/18 Asthma: No Cancer: No Cardiac Disorders: No COPD: No Diabetes: No HTN: No Seizures: No Thyroid Disease: No - Surgical History Abdominal Surgery: Yes Appendectomy: Yes Cholecystectomy: Yes - Reproductive History (#): 5 Para: 2 Therapeutic (s) & number: Yes (1) Spontaneous : 1 - Immunization History Immunization Up to Date: No - Suicide/Smoking/Psychosocial Hx Smoking Status: No Smoking History: Never smoked Have you smoked in the past 12 months: No Number of Cigarettes Smoked Daily: 0 Hx Alcohol Use: No Drug/Substance Use Hx: No Substance Use Type: None Hx Substance Use Treatment: No *Physical Exam - Vital Signs Last Vital Signs Temp Pulse Resp BP Pulse Ox 98.9 F 108 H 18 116/69 98 08/02/18 20:26 08/02/18 20:26 08/02/18 20:26 08/02/18 20:26 08/02/18 20:26 Medical Decision Making - Medical Decision Making 08/02/18 21:03 A/P: 22-year-old woman with cellulitis to the left lower extremity 7 x 3 cm area of erythema surrounding multiple superficial pockets of pus to the posterior aspect of the left calf Pockets of pus are self draining No fluctuance present Cellulitis present to the posterior aspect of the leg. Discharge the patient on antibiotics and Keflex and Bactrim to be taken for the next 7 days. Patient instructed to apply warm compresses to the area and to take Tylenol or Aleve as needed for pain. Patient is verbalizes understanding of discharge instructions. *DC/Admit/Observation/Transfer Diagnosis at time of Disposition: Cellulitis Qualifiers: Site of cellulitis: extremity Site of cellulitis of extremity: lower extremity Laterality: left Qualified Code(s): L03.116 - Cellulitis of left lower limb - Discharge Dispostion Disposition: HOME Condition at time of disposition: Stable Decision to Admit order: No - Prescriptions Prescriptions: Cephalexin [Keflex] 500 mg PO QID #28 capsule Sulfamethoxazole/Trimethoprim [Bactrim Ds -] 1 tab PO BID #14 tablet - Referrals Referrals: Mansoor Feliciano MD [Primary Care Provider] - - Patient Instructions Additional Instructions: Take Keflex 500 mg 4 times a day for the next 7 days Take Bactrim DS one tablet twice a day for the next 7 days Finish all antibiotics even if you feel better. Apply warm compresses to your ear as needed. Do not replace the earrings. Return to emergency department for any worsening pain, drainage, hearing loss, or any other concerns. Thank you very much for choosing us to provide your emergent health care needs. - Post Discharge Activity
[2018-08-02] MEDS ORDERED: NAPROXEN 500 MG TABLET (FP) PO ONE (21:07)
[2018-08-02] MEDS ORDERED: NAPROXEN 500 MG TABLET (FP) ONE (21:09)
== END 2018-08-02 21:13 | disposition home or self-care (01) ==
LOC: JERFT 20:25
DX: L03.116 Cellulitis of left lower limb (principal)
CPT/HCPCS: 99281-25

== ENCOUNTER 2019-10-07 10:08 | Emergency (ER) | payer OTHER ==
[2019-10-07 10:22] VITALS: BMI 28.8
[2019-10-07] MEDS ORDERED: SODIUM CHLORIDE 0.9% 500 ML INFUS.BAG IV ONE (10:32)
[2019-10-07] MEDS ORDERED: ACETAMINOPHEN 1000 MG/100 ML VIAL (NON FORMULARY) IVPB ONE (10:32)
[2019-10-07] MEDS ORDERED: ACETAMINOPHEN INJECTION 100 ML IVPB ONE (11:04)
--- NOTE | 2019-10-07 11:10 | PDOC ---
History of Present Illness - General Chief Complaint: Vaginal Bleeding Stated Complaint: VAGINAL BLEEDING 9WKS PRG Time Seen by Provider: 10/07/19 10:27 - History of Present Illness Initial Comments: 10/07/19 11:05 23 yo F, A2 currently 9 weeks (LMP 08/07/2019), appendectomy (2008) , cholecystectomy (2014), emergent 2/2 placenta previa (2018), presenting with vaginal spotting. States that she noticed spotting after wiping starting this morning. Notes that she was standing in line to the [employer] for over an hour this morning and they did not care about her standing for that long. Complains about intermittent 5/10 crampy lower abdominal and back pain. Denies vaginal bleeding, dizziness, lightheadedness, CP, SOB, constipation/diarrhea, fevers/chills, FRANCO, N/V. Patient's OBGYN is Dr. Prieto, has not seen her yet this but has appointment next week. Has been taking vitamins. Past History - Past Medical History Allergies/Adverse Reactions: Allergies Allergy/AdvReac Type Severity Reaction Status Date / Time No Known Allergies Allergy Verified 08/02/18 20:29 Home Medications: Ambulatory Orders Cephalexin [Keflex] 500 mg PO QID #28 capsule 08/02/18 Sulfamethoxazole/Trimethoprim [Bactrim Ds -] 1 tab PO BID #14 tablet 08/02/18 Asthma: No Cancer: No Cardiac Disorders: No COPD: No Diabetes: No HTN: No Seizures: No Thyroid Disease: No - Surgical History Abdominal Surgery: Yes Appendectomy: Yes Cholecystectomy: Yes - Reproductive History (#): 5 Para: 2 Therapeutic (s) & number: Yes (1) Spontaneous : 1 - Immunization History Immunization Up to Date: No - Psycho Social/Smoking Cessation Hx Smoking Status: No Smoking History: Never smoked Have you smoked in the past 12 months: No Number of Cigarettes Smoked Daily: 0 Information on smoking cessation initiated: No Hx Alcohol Use: No Drug/Substance Use Hx: No Substance Use Type: None Hx Substance Use Treatment: No Review of Systems - Review of Systems Comments:: 10/07/19 11:10 GENERAL/CONSTITUTIONAL: No fever or chills. No weakness. HEAD, EYES, EARS, NOSE AND THROAT: No change in vision. No ear pain or discharge. No sore throat. CARDIOVASCULAR: No chest pain or shortness of breath. RESPIRATORY: No cough, wheezing, or hemoptysis. GASTROINTESTINAL: No nausea, vomiting, diarrhea or constipation. GENITOURINARY: No dysuria, frequency, or change in urination. Notes hematuria and vaginal spotting. MUSCULOSKELETAL: No joint or muscle swelling or pain. No neck or back pain. SKIN: no rash NEUROLOGIC: No headache, vertigo, loss of consciousness, or change in strength/ sensation. ENDOCRINE: No increased thirst. No abnormal weight change. HEMATOLOGIC/LYMPHATIC: No anemia, easy bleeding, or history of blood clots. ALLERGIC/IMMUNOLOGIC: No hives or skin allergy *Physical Exam - Vital Signs Last Vital Signs Temp Pulse Resp BP Pulse Ox 98.2 F 80 17 103/55 L 100 10/07/19 10:18 10/07/19 10:18 10/07/19 10:18 10/07/19 10:18 10/07/19 10:18 - Physical Exam 10/07/19 11:10 Gen: well-developed, well-nourished, NAD Neuro: AAOX4, CN II-XII intact, FTN intact, EOMI, PERRLA, 5/5 strength, SILT HEENT: atraumatic, normocephalic, dry mucous membranes Neck: trachea midline, supple CV: regular rate, regular rhythm, no murmurs, rubs, or gallops Pulm: CTA b/l, no wheezing Abd: soft, non-distended, suprapubic tenderness Pelvic: fingertip os, pooled blood in the vault, no active bleeding, no adnexal tenderness MSK: full ROM, intact pulses Extr: no edema, no deformities Skin: warm, dry ED Treatment Course - LABORATORY CBC & Chemistry Diagram: 10/07/19 10:55 10/07/19 10:55 Medical Decision Making - Medical Decision Making 10/07/19 11:11 Concern for possible issues of such as threatened or incomplete vs UTI. - CBC, CMP - UA/UC/U preg - Quantitative beta-hCG - T+S 10/07/19 12:14 Urine beta-hCG negative, quantitative hCG >24595. Pelvic exam with pooled blood in the vault, fingertip os. Will get TVUS to look for IUP. Discharge - Discharge Information Problems reviewed: Yes Clinical Impression/Diagnosis: , Subchorionic bleed Condition: Stable Disposition: HOME - Admission No - Follow up/Referral - Patient Discharge Instructions Additional Instructions: You were seen with vaginal bleeding. Your labs, pelvic exam, and ultrasound are consistent with a live at 8 weeks, 4 days. However, it does show a subchorionic bleed. This means that you need pelvic rest. In other words, no sex and no vaginal insertion of anything. Please follow up with your OBGYN appointment. Return to the ED if you develop worsening symptoms. - Post Discharge Activity
[2019-10-07 11:15] LABS: BASO % 0.3 % (0-2.0); EOS % 2.8 % (0-4.5); HEMATOCRIT 40.1 % (32.4-45.2); HEMOGLOBIN 12.8 GM/dL (10.7-15.3); LYMPH % 18.4 % (8-40); MCH 24.7 pg (25.7-33.7); MEAN CELL VOLUME 77.4 fl (80-96); MEAN PLT VOLUME 8.4 fl (7.5-11.1); MONO % 3.5 % (3.8-10.2); PLATELET COUNT 340 K/MM3 (134-434); RBC 5.18 M/mm3 (3.60-5.2); RDW 22.9 % (11.6-15.6); WHITE BLOOD COUNT 7.9 K/mm3 (4.0-10.0)
[2019-10-07 11:25] LABS: EPI CELLS 12.3 /HPF (0-5/HPF); HYALINE CASTS 41 /lpf (0-8); PH,URINE 5.5 (5.0-8.0); URINE APPEARANCE CLOUDY; URINE BACTERIA 1263.2 /hpf (NEGATIVE); URINE BILIRUBIN NEGATIVE (NEGATIVE); URINE COLOR YELLOW; URINE GLUCOSE (UA) NEGATIVE (NEGATIVE); URINE KETONE NEGATIVE (NEGATIVE); URINE LEUK ESTERASE NEGATIVE (NEGATIVE); URINE NITRITE NEGATIVE (NEGATIVE); URINE PROTEIN TRACE (NEGATIVE); URINE RBC 1 /hpf (0-4); URINE WBC 7 /hpf (0-5)
[2019-10-07 11:38] LABS: ALBUMIN 3.8 g/dl (3.4-5.0); BILIRUBIN,TOTAL 0.2 mg/dL (0.2-1); BLOOD UREA NITROGEN 5.6 mg/dL (7-18); CALCIUM 8.9 mg/dL (8.5-10.1); CREATININE 0.7 mg/dL (0.55-1.3); POTASSIUM 3.6 mmol/L (3.5-5.1); TOT PROT 7.4 g/dl (6.4-8.2)
--- NOTE | 2019-10-07 11:38 | PDOC ---
Documentation entered by Rosalee Couch SCRIBE, acting as scribe for Lucero Sanderson DO. Lucero Sanderson DO: This documentation has been prepared by the Iza houser Andrys, SCRIBE, under my direction and personally reviewed by me in its entirety. I confirm that the documentation accurately reflects all work, treatment, procedures, and medical decision making performed by me. Attending Attestation - Resident Resident Name: Mary Carmen Guevara - ED Attending Attestation I have performed the following: I have examined & evaluated the patient, The case was reviewed & discussed with the resident, I agree w/resident's findings & plan, Exceptions are as noted - HPI HPI: 10/07/19 11:17 The patient is a 23 year old female, 9 weeks ( A2), with no significant past medical history who presents to the ED with vaginal bleeding since earlier today. Patient reports vaginal spotting that she notes secondary to wiping after urinating. Patient also reports mild lower abdominal and back cramping that she describes as a pressure like sensation. Patient has not seen her OBGYN, her next scheduled appointment is next week. Denies fever or chills. Denies dysuria or change in urinary output. Denies any other symptoms. Last menstrual period: August 07, 2019 OBGYN: Dr. Prieto Surgical hx: Appendectomy, Cholecystectomy, s/p placenta previa - Physicial Exam PE: 10/07/19 11:17 Constitutional: Awake, alert, oriented. No acute distress, eating and drinking in the room. Head: Normocephalic. Atraumatic Eyes: PERRL. EOMI. Conjunctivae are not pale. ENT: Mucous membranes are moist and intact. Posterior pharynx without exudates or erythema. Uvula midline. Neck: Supple. Full ROM. No lymphadenopathy. Cardiovascular: Regular rate. Regular rhythm. S1, S2 regular. Distal pulses are 2+ and symmetric. Pulmonary/Chest: No evidence of respiratory distress. Clear to auscultation bilaterally No wheezing, rales or rhonchi. Abdominal: + Mild superpubic tenderness. Soft and non-distended. No rebound, guarding or rigidity. No organomegaly. No palpable masses. Good bowel sounds. Back: No CVA tenderness. Musculoskeletal: No edema. No cyanosis. No clubbing. Full range of motion in all extremities. Nocalf tenderness. Radial/pedal pulses are intact and 2+ bilaterally Skin: Skin is warm and dry. No petechiae. No purpura. Neurological: Ambulated with steady gait. Alert and oriented to person, place, and time. Cranial nerves II-XII are grossly intact. Normal speech. Strength is grossly symmetric. No sensory deficits. Psychiatric: Good eye contact. Normal interaction, affect and behavior. - Medical Decision Making 10/07/19 11:33 a/p: 23yo at about 9 weeks gestation with vaginal spotting today after being frustrated [facility] the [employer] -pt states vaginal spotting today when she urinates -slight cramping -pt denies dysuria, no n/v/d -pt eating and drinking during the exam -hx of miscarriages in hte past -given 1st trimester bleed concerned for threatened ab -T&S A+ -will send labs, tvus -ua 10/07/19 11:38 hcg urine neg pending beta hgb stable 10/07/19 11:45 pt states upreg + at home in August around thanksgiving IUD out Aug 20- had not had a menstrual cycle prior to +home preg upreg neg in the ER pending beta 10/07/19 12:28 beta [id number] 10/07/19 13:35 pt 8w4d with small subchorionic bleed stable for dc to home pelvic rest given precautions on reasons to return to and need for follow up with PMD
[2019-10-07 13:49] VITALS: BP 109/65; PULSE 97; TEMP 97.7
[2019-10-07 16:33] LABS: YEAST NONE SEEN (NEGATIVE)
[2019-10-07 17:30] LABS: ANISOCYTOSIS 2+; MACROCYTOSIS 2+
== END 2019-10-07 14:02 | disposition home or self-care (01) ==
LOC: JER 10:08
PROC: 3E033NZ Introduction of Analgesics, Hypnotics, Sedatives into Peripheral Vein, Percutaneous Approach (ICD-10-PCS; principal; 2019-10-07)
DX: O20.8 Other hemorrhage in early pregnancy (principal); Z3A.09 9 weeks gestation of pregnancy; N93.9 Abnormal uterine and vaginal bleeding, unspecified
CPT/HCPCS: 36415; 76817-TC; 80053; 81003; 84702; 84703; 85025; 87086; 99283-25; J0131

== ENCOUNTER 2019-10-28 09:27 | Emergency (ER) | payer OTHER ==
--- NOTE | 2019-10-28 09:53 | PDOC ---
Rapid Medical Evaluation Medical Evaluation: Allergies Allergy/AdvReac Type Severity Reaction Status Date / Time No Known Allergies Allergy Verified 08/02/18 20:29 10/28/19 09:52 Patient is 23F at 11wks here today with LUQ abdominal pain and nausea. Tender to LUQ, patient appears comfortable. Vitals normal. Patient to main ED for further evaluation. Discharge Disposition - Diagnosis Abdominal pain affecting - Discharge Dispostion Condition at time of disposition: Stable - Referrals - Patient Instructions - Post Discharge Activity
[2019-10-28 10:01] VITALS: BP 106/61; PULSE 96; TEMP 98; BMI 29.9
[2019-10-28 10:49] LABS: HEMATOCRIT 38.3 % (32.4-45.2); HEMOGLOBIN 12.6 GM/dL (10.7-15.3); MCH 26.2 pg (25.7-33.7); MCHC 32.8 g/dl (32.0-36.0); MEAN CELL VOLUME 79.9 fl (80-96); MEAN PLT VOLUME 8.1 fl (7.5-11.1); PLATELET COUNT 267 K/MM3 (134-434); RBC 4.79 M/mm3 (3.60-5.2); RDW 24.1 % (11.6-15.6); WHITE BLOOD COUNT 6.4 K/mm3 (4.0-10.0)
[2019-10-28 10:50] LABS: PH,URINE 5.5 (5.0-8.0); URINE APPEARANCE CLOUDY; URINE BILIRUBIN NEGATIVE (NEGATIVE); URINE COLOR DK YELLOW; URINE GLUCOSE (UA) NEGATIVE (NEGATIVE); URINE KETONE TRACE (NEGATIVE); URINE LEUK ESTERASE NEGATIVE (NEGATIVE); URINE NITRITE NEGATIVE (NEGATIVE); URINE PROTEIN NEGATIVE (NEGATIVE)
[2019-10-28 11:19] LABS: ALBUMIN 3.3 g/dl (3.4-5.0); BILIRUBIN,TOTAL 0.8 mg/dL (0.2-1); CALCIUM 8.6 mg/dL (8.5-10.1); CREATININE 0.6 mg/dL (0.55-1.3); POTASSIUM 3.6 mmol/L (3.5-5.1)
--- NOTE | 2019-10-28 11:20 | PDOC ---
Attending Attestation - Resident Resident Name: CarlosJohn Paul - ED Attending Attestation I have performed the following: I have examined & evaluated the patient, The case was reviewed & discussed with the resident, I agree w/resident's findings & plan, Exceptions are as noted - HPI HPI: 10/28/19 11:26 23y F A1 approx 12 weeks presents with complaint of intermittent LUQ 10/10 for the past 2 days that is worse with movement, walking, coughing. Pt notes that she has been having subjective fevers, URI/cough for the past several days , family members and boyfriend also with similar URI like symptoms. Pt denies any fever/chills, cough, vomiting, diarrhea, bpr, vag bleeding. pt with prior confirmation of IUP sx: cholecystecotmy exam: general: well appearing, NAD pulm cta b/l card: rrr abd: mild LUQ tenderness to palaption, pain reproduced on hip flexion and with sitting up suspect msk pain due to cough labs unremarkable tylenol for pain anticiptae dc with supportive care at home. - Physicial Exam PE: 11/03/19 07:20 see abo ve - Medical Decision Making lbs reviewed and neg pt feeling better, appears well will dc with supportive care and pmd fu return precautions were discussed
[2019-10-28] MEDS ORDERED: ACETAMINOPHEN 325 MG TABLET (FP) PO ONE (12:44)
--- NOTE | 2019-10-28 12:49 | PDOC ---
History of Present Illness - General Chief Complaint: Pain Stated Complaint: 12 W PREG/LT UPPER ABD PAIN Time Seen by Provider: 10/28/19 10:36 History Source: Patient Exam Limitations: No Limitations - History of Present Illness Initial Comments: 23 yo F A1 approximately 12 weeks gestational age presents to the emergency department with LUQ. Per the patient, the pain is 10/10 in severity, sharp in nature, ongoing for the past 2 days with worsening when ambulating. Per the patient, she states it heightens in pain amplitude when she coughs. Endorses the following: nasal congestion, cough, subjective fever, chills. Denies the following: nausea, vomiting, headache, visual disturbance, ears/nose/throat pain , chest pain, SOB, dysuria, hematuria, diarrhea, vaginal bleeding, vaginal discharge, and leg pain/swelling. Past History - Past Medical History Allergies/Adverse Reactions: Allergies Allergy/AdvReac Type Severity Reaction Status Date / Time No Known Allergies Allergy Verified 10/28/19 10:02 Home Medications: Ambulatory Orders NK [No Known Home Medication] 10/28/19 Asthma: No Cancer: No Cardiac Disorders: No COPD: No Diabetes: No HTN: No Seizures: No Thyroid Disease: No - Surgical History Abdominal Surgery: Yes Appendectomy: Yes Cholecystectomy: Yes - Reproductive History (#): 5 Para: 2 Cervical CA: No Dysfunctional Uterine Bleeding: No Ectopic : No Endometrial CA: No Polycystic Ovaries: No Therapeutic (s) & number: Yes (1) Tubal Ligation: No Spontaneous : 1 - Immunization History Immunization Up to Date: No - Psycho Social/Smoking Cessation Hx Smoking Status: No Smoking History: Never smoked Have you smoked in the past 12 months: No Number of Cigarettes Smoked Daily: 0 Information on smoking cessation initiated: No Hx Alcohol Use: No Drug/Substance Use Hx: No Substance Use Type: None Hx Substance Use Treatment: No Review of Systems - Review of Systems Able to Perform ROS?: Yes Is the patient limited Persian proficient: No Constitutional: Yes: Chills, Fever. No: Diaphoresis, Weakness HEENTM: Yes: Nose Congestion. No: Eye Pain, Ear Pain, Nose Pain, Throat Pain, Mouth Pain Respiratory: Yes: Cough. No: Shortness of Breath, Hemoptysis Cardiac (ROS): No: Chest Pain, Lightheadedness, Palpitations, Chest Tightness ABD/GI: Yes: Abdominal cramping (LUQ). No: Constipated, Diarrhea, Nausea, Rectal Bleeding, Vomiting, Tarry Stools : No: Burning, Dysuria, Hematuria Musculoskeletal: No: Back Pain, Joint Pain, Neck Pain Integumentary: No: Bruising, Erythema, Rash Neurological: No: Headache, Numbness, Tingling, Tremors Psychiatric: No: Change in Appetite Endocrine: No: Unexplained Weight Loss Hematologic/Lymphatic: No: Anemia *Physical Exam - Vital Signs Last Vital Signs Temp Pulse Resp BP Pulse Ox 98.0 F 96 H 18 106/61 100 10/28/19 10:00 10/28/19 10:00 10/28/19 10:00 10/28/19 10:00 10/28/19 10:00 - Physical Exam General Appearance: Yes: Nourished, Appropriately Dressed. No: Apparent Distress, Intoxicated HEENT: positive: EOMI, PARAG, Normal Voice, Symmetrical, Pharynx Normal, Nasal Congestion, Hearing Grossly Normal. negative: Pale Conjunctivae, Scleral Icterus (R), Scleral Icterus (L), Muffled/Hoarse voice, Pharyngeal Erythema, Tonsillar Exudate, Tonsillar Erythema, Rhinorrhea, Excessive drooling Neck: positive: Trachea midline, Supple. negative: Tender, Lymphadenopathy (R) , Lymphadenopathy (L), Tender lateral, Tender midline Respiratory/Chest: positive: Lungs Clear, Normal Breath Sounds. negative: Chest Tender, Respiratory Distress, Accessory Muscle Use Cardiovascular: positive: Regular Rhythm, Regular Rate, S1, S2. negative: Systolic Murmur Gastrointestinal/Abdominal: positive: Normal Bowel Sounds, Tender (LUQ tenderness to palpation), Flat, Soft. negative: Distended, Guarding, Rebound Lymphatic: negative: Adenopathy Musculoskeletal: positive: Normal Inspection. negative: CVA Tenderness, Vertebral Tenderness Extremity: positive: Normal Capillary Refill, Normal Inspection, Normal Range of Motion. negative: Tender, Swelling, Calf Tenderness Integumentary: positive: Normal Color, Dry, Warm. negative: Erythema, Jaundice , Diaphoresis, Moist, Hives, Petechiae, Rash, Swelling Neurologic: positive: Fully Oriented, Alert, Normal Mood/Affect ED Treatment Course - LABORATORY CBC & Chemistry Diagram: 10/28/19 10:20 10/28/19 10:20 - ADDITIONAL ORDERS Additional order review: Laboratory Results 10/28/19 10/28/19 10:20 10:20 Sodium 136 Potassium 3.6 Chloride 106 Carbon Dioxide 25 Anion Gap 5 L BUN 5.0 L Creatinine 0.6 Est GFR (CKD-EPI)AfAm 146.83 Est GFR (CKD-EPI)NonAf 126.68 Random Glucose 96 Calcium 8.6 Total Bilirubin 0.8 AST 22 ALT 29 Alkaline Phosphatase 99 Total Protein 7.0 Albumin 3.3 L Lipase 136 Urine Color Dk yellow Urine Appearance Cloudy Urine pH 5.5 Ur Specific [place] 1.026 Urine Protein Negative Urine Glucose (UA) Negative Urine Ketones Trace H Urine Blood Negative Urine Nitrite Negative Urine Bilirubin Negative Urine Urobilinogen 1.0 Ur Leukocyte Esterase Negative 10/28/19 10:20 RBC 4.79 MCV 79.9 L MCHC 32.8 RDW 24.1 H MPV 8.1 Medical Decision Making - Medical Decision Making 23 yo F A1 approximately 12 weeks gestational age presents to the emergency department with LUQ. Per the patient, the pain is 10/10 in severity, sharp in nature, ongoing for the past 2 days with worsening when ambulating. Initial vitals: Initial Vital Signs Temp Pulse Resp BP Pulse Ox 98.0 F 96 H 18 106/61 100 10/28/19 10:00 10/28/19 10:00 10/28/19 10:00 10/28/19 10:00 10/28/19 10:00 Work up: ddx: patient with 12 weeks GA presents with LUQ likely secondary to gastritis vs GERD vs msk pain. Unlikely to be pyelonephritis due to absence of urinary symptoms. Will obtain labs and imaging. Laboratory Tests 10/28/19 10/28/19 10/28/19 10:20 10:20 10:20 WBC 6.4 RBC 4.79 Hgb 12.6 Hct 38.3 MCV 79.9 L MCH 26.2 MCHC 32.8 RDW 24.1 H Plt Count 267 D MPV 8.1 Sodium 136 Potassium 3.6 Chloride 106 Carbon Dioxide 25 Anion Gap 5 L BUN 5.0 L Creatinine 0.6 Est GFR (CKD-EPI)AfAm 146.83 Est GFR (CKD-EPI)NonAf 126.68 Random Glucose 96 Calcium 8.6 Total Bilirubin 0.8 AST 22 ALT 29 Alkaline Phosphatase 99 Total Protein 7.0 Albumin 3.3 L Lipase 136 Urine Color Dk yellow Urine Appearance Cloudy Urine pH 5.5 Ur Specific [place] 1.026 Urine Protein Negative Urine Glucose (UA) Negative Urine Ketones Trace H Urine Blood Negative Urine Nitrite Negative Urine Bilirubin Negative Urine Urobilinogen 1.0 Ur Leukocyte Esterase Negative UA negative for UTI no leukocytosis. Patient has resolutions of symptoms. Patient to be discharged with follow up with OBGYN within 1 week after discharge Discharge - Discharge Information Problems reviewed: Yes Clinical Impression/Diagnosis: Abdominal pain affecting Condition: Stable Disposition: HOME - Admission No - Follow up/Referral Referrals: Mansoor Feliciano MD [Primary Care Provider] - - Patient Discharge Instructions Patient Printed Discharge Instructions: DI for Musculoskeletal Pain Additional Instructions: You were seen in the emergency department for your left sided pain. It is likely secondary to musculoskeletal pain secondary to the . Please follow up with your primary medical doctor for follow up care and evaluation. Please return to the emergency department if you have worsening symptoms or new concerning symptoms such as vaginal bleeding, lower abdominal pain, uncontrollable nausea and vomiting, and fever. - Post Discharge Activity
[2019-10-28] MEDS ORDERED: ACETAMINOPHEN 325 MG TABLET (FP) ONE (12:56)
== END 2019-10-28 13:18 | disposition home or self-care (01) ==
LOC: JER 09:27
DX: O26.891 Other specified pregnancy related conditions, first trimester (principal); M79.18 Myalgia, other site; R10.12 Left upper quadrant pain; Z3A.12 12 weeks gestation of pregnancy
CPT/HCPCS: 36415; 80053; 81003; 83690; 85027; 87086; 99283-25

== ENCOUNTER 2020-04-26 20:20 | Inpatient (IN) | payer OTHER ==
[2020-04-26 22:35] LABS: BASO % 0.2 % (0-2.0); EOS % 0.4 % (0-4.5); HEMATOCRIT 39.3 % (32.4-45.2); HEMOGLOBIN 13.5 GM/dL (10.7-15.3); LYMPH % 21.9 % (8-40); MCH 31.5 pg (25.7-33.7); MCHC 34.3 g/dl (32.0-36.0); MEAN CELL VOLUME 91.7 fl (80-96); MEAN PLT VOLUME 9.3 fl (7.5-11.1); MONO % 7.2 % (3.8-10.2); NEUT % 70.3 % (42.8-82.8); PLATELET COUNT 182 K/MM3 (134-434); RBC 4.28 M/mm3 (3.60-5.2); RDW 13.5 % (11.6-15.6); WHITE BLOOD COUNT 8.7 K/mm3 (4.0-10.0)
[2020-04-26] MEDS ORDERED: CITRIC ACID/SODIUM CITRATE 30 ML UNIT-DOSE CUP PO ONE (22:45)
[2020-04-26] MEDS ORDERED: ELECTROLYTE-148 SOLN 1,000 ML IV ONE (22:45)
[2020-04-26] MEDS ORDERED: ELECTROLYTE-148 SOLN 1,000 ML IV SCH (22:45)
[2020-04-26] MEDS ORDERED: OXYTOCIN 20 UNITS in 0.9% NS 20 UNIT/1,000 ML INFUS.BAG IV ONE (23:03)
--- NOTE | 2020-04-26 23:03 | HP ---
Past Medical History - Primary Care Physician PCP:: Ap Nj - Admission Chief Complaint: Regular contractions History of Present Illness: Scheduled repeat CD and BTL on 05/07/20 presenting with regular contractions 3-5 minutes History Source: Patient Limitations to Obtaining History: No Limitations - Past Medical History DIETARY COOK: No: Alzheimer's, CVA, Dementia, Migraine, Multiple Sclerosis, Peripheral Neuropathy, Parkinson's, Seizure, Syncope, TIA, Vertigo, Other Cardiovascular: No: AFIB, Aneurysm, Aortic Insufficiency, Aortic Stenosis, CAD, CHF, Deep Vein Thrombosis, HTN, Hyperlipdemia, NE, Mitral Insufficiency, Mitral Stenosis, Murmur, Pulmonary Hypertension, Other Pulmonary: No: Asthma, Bronchitis, Cancer, COPD, O2 Dependent, Pneumonia, Previously Intubated, Pulmonary Embolus, Pulmonary Fibrosis, Sleep Apnea, Other Gastrointestinal: No: Ascites, Cancer, Constipation, Crohn's Disease, Diverticulitis, Diverticulosis, Esophageal Varices, Gastritis, GERD, GI Bleed, Hemorrhoids, Hiatal Hernia, Inflamatory Bowel Disease, Irritable Bowel Disease, Pancreatitis, Peptic Ulcer Disease, Ulcerative Colitis, Other Hepatobiliary: No: Cirrhosis, Cholelithiasis, Cholecystitis, Choledocholithiasis, Hepatitis A, Hepatitis B, Hepatitis C, Other Renal/: No: Renal Failure, Renal Inusuff, BPH, Cancer, Hematuria, Hemodialysis, Neurogenic Bladder, Renal Calculi, UTI, Other Reproductive: No: Ectopic , Endometriosis, Fibroids, PID, Polycystic Ovary Syndrome, Postmenopausal, Other ...: 4 ...Para: 3 Heme/Onc: No: Anemia, B12 Deficiency, Bleeding Disorder, Cancer, Current Chemotherapy, Current Radiation Therapy, Hemochromatosis, Hypercoaguable State, Myeloproliferative Synd, Sickle Cell Disease, Sickle Cell Trait, Throm bocytopenia, Other Infectious Disease: Yes: STD's (hx chlamydia, txed; HSV) Psych: No: Addictions, Anxiety, Bipolar, Depression, Panic, Psychosis, Juan izophrenia, Other Musculoskeletal: No: Bursitis, Chronic low back pain, Hemiparesis, Hemiplegia, Osteoarthritis, Paraplegia, Other Rheumatology: No: Fibromyalgia, Gout, Lupus, Rheumatoid Arthritis, Sarcoidosis, Vasculitis, Other ENT: No: Allergic Rhinitis, Sinusitis, Other Endocrine: No: Andrew's Disease, Chen's Disease, Diabetes Insipidus, Diabetes Mellitus, Hyperparathyroidism, Hyperthyroidism, Hypothyroidism, Osteopenia, SIADH, Other Dermatology: No: Basal Cell, Cellulitis, Eczema, Melanoma, Psoriasis, Squamous Cell, Other - Past Surgical History Past Surgical History: Yes: Hx Myomectomy: No Hx Transabdominal Cerclage: No - Smoking History Smoking history: Never smoked Have you smoked in the past 12 months: No Aproximately how many cigarettes per day: 0 - Alcohol/Substance Use Hx Alcohol Use: No History of Substance Use: reports: None - Social History History of Recent Travel: No Home Medications - Allergies Allergies/Adverse Reactions: Allergies Allergy/AdvReac Type Severity Reaction Status Date / Time No Known Allergies Allergy Verified 04/06/20 14:12 - Home Medications Home Medications: Ambulatory Orders Vitamins (Sjr) - 1 tab PO DAILY 03/26/20 Insulin NPH [Novolin N] 14 unit SQ HS 04/06/20 Family Medical History Family History: Unremarkable Review of Systems Findings/Remarks: regular moderate contractions - Review of Systems Constitutional: reports: No Symptoms Eyes: reports: No Symptoms HENT: reports: No Symptoms Neck: reports: No Symptoms Cardiovascular: reports: No Symptoms Respiratory: reports: No Symptoms Gastrointestinal: reports: No Symptoms Genitourinary: reports: No Symptoms Breasts: reports: No Symptoms Reported Musculoskeletal: reports: No Symptoms Integumentary: reports: No Symptoms Neurological: reports: No Symptoms Endocrine: reports: No Symptoms Hematology/Lymphatic: reports: No Symptoms Psychiatric: reports: No Symptoms Physical Exam - Maternity Vital Signs: as documented by nursing Constitutional: Yes: Well Nourished HENT: Yes: Atraumatic Neck: Yes: Supple Cardiovascular: Yes: Regular Rate and Rhythm Breast(s): Yes: Other - Abdominal Exam/OB Number of Fetuses: Single Presentation: Vertex Contractions: Yes Regularity: Regular Intensity: Moderate Monitor Mode: External Heart Rate (range): 160 Category: I Accelerations: Uniform Decelerations: None - Vaginal Exam/OB Vaginal Bleeding: Yes Speculum Exam: No Dilatation (cm): 2 Effacement (%): 50 Presentation: Vertex/Position Station: -2 - Physical Exam Musculoskeletal: Yes: WNL Extremities: Yes: WNL Edema: LLE: Trace, RLE: Trace Integumentary: Yes: WNL ...Motor Strength: WNL Psychiatric: Yes: Alert, Oriented - Labs Lab Results: CBC, BMP 04/26/20 22:15 Imaging - Results Ultrasound: Report Reviewed Assessment/Plan 24 y/o @ 37.4 wks, prior C/S and scheduled repeat with BTL presenting with regular contractions. significant for A2GDM well controlled. Patient was counseled regarding risks and complications of repeat CD and sterilization. All questions answered and she expressed understanding. Patient desires sterilization. -Proceed with delivery -Sterilization
[2020-04-26] MEDS ORDERED: morphine SULFATE/PF 0.5 MG/ML (2cc Syringe - QUVA) ONE (23:05)
[2020-04-26] MEDS ORDERED: PROPOFOL 20 ML ONE (23:05)
[2020-04-26] MEDS ORDERED: PHENYLEPHRINE HCL 10 MG/1 ML SINGLE DOSE VIAL ONE (23:05)
[2020-04-26] MEDS ORDERED: SUCCINYLCHOLINE CHLORIDE 200 MG/10 ML SYRINGE ONE (23:05)
[2020-04-26] MEDS ORDERED: ePHEDrine SULFATE 50 MG/1 ML AMPULE ONE (23:06)
[2020-04-26 23:07] LABS: BLOOD UREA NITROGEN 3.8 mg/dL (7-18); CREATININE 0.5 mg/dL (0.55-1.3); POTASSIUM 3.6 mmol/L (3.5-5.1)
[2020-04-26] MEDS ORDERED: SODIUM CHLORIDE 0.9% P/F 10 ML VIAL IJ ONE ×2 (23:11→23:13)
[2020-04-26] MEDS ORDERED: ceFAZolin SODIUM 1 GM VIAL ONE (23:13)
[2020-04-26 23:20] LABS: INR 0.97 (0.83-1.09); PROTHROMBIN TIME (PATIENT) 11.5 SEC (9.7-13.0)
[2020-04-26] MEDS ORDERED: oxyCODONE HCL 5 MG TABLET PO PRN (23:21)
[2020-04-26] MEDS ORDERED: IBUPROFEN 800 MG/8 ML IJ IVPB PRN (23:21)
[2020-04-26 23:23] LABS: ACTIVATED PTT 25.8 SECONDS (25.2-36.5)
[2020-04-26] MEDS ORDERED: OXYTOCIN 10 UNITS/ML VIAL ONE (23:47)
[2020-04-26] MEDS: OXYTOCIN 20 UNITS in 0.9% NS 20 UNIT/1,000 ML INFUS.BAG IV SCH (23:54)
[2020-04-27] MEDS ORDERED: morphine SULFATE/PF 0.5 MG/ML (2cc Syringe - QUVA) EP ONE (00:15)
[2020-04-27] MEDS ORDERED: ONDANSETRON 4 MG/2 ML VIAL IVPUSH PRN (00:15)
[2020-04-27] MEDS ORDERED: OXYTOCIN 20 UNITS in 0.9% NS 20 UNIT/1,000 ML INFUS.BAG IV ONE ×2 (00:23→03:15)
--- NOTE | 2020-04-27 00:36 | OP ---
Operative Note - Note: Operative Date: 04/27/20 (12193) Pre-Operative Diagnosis: prior C/S desiring repeat and sterilization, latent early labor Operation: RLTCS and BS Findings: see dictation Post-Operative Diagnosis: Same as Pre-op Surgeon: Ap Nj Marketing Professional: Yasmani Hurst Anesthesia: Spinal Estimated Blood Loss (mls): 700 Drains, Volume Out (mls): 500 (clear urine) Fluid Volume Replaced (mls): 1,700 Operative Report Dictated: Yes
[2020-04-27 01:47] VITALS: BMI 33.5
[2020-04-27 08:02] LABS: BASO % 0.2 % (0-2.0); EOS % 0.3 % (0-4.5); HEMATOCRIT 34.7 % (32.4-45.2); HEMOGLOBIN 11.6 GM/dL (10.7-15.3); LYMPH % 20.3 % (8-40); MCH 31.1 pg (25.7-33.7); MCHC 33.5 g/dl (32.0-36.0); MEAN CELL VOLUME 92.7 fl (80-96); MEAN PLT VOLUME 9.3 fl (7.5-11.1); MONO % 6.5 % (3.8-10.2); NEUT % 72.7 % (42.8-82.8); PLATELET COUNT 167 K/MM3 (134-434); RBC 3.74 M/mm3 (3.60-5.2); RDW 13.4 % (11.6-15.6); WHITE BLOOD COUNT 10.3 K/mm3 (4.0-10.0)
[2020-04-27] MEDS: OXYTOCIN 20 UNITS in 0.9% NS 20 UNIT/1,000 ML INFUS.BAG IV SCH (10:01)
--- NOTE | 2020-04-27 10:15 | PN ---
Progress Note (short form) - Note Progress Note: Anesthesia Post op/pain Pt seen and examined S:Alert and awake comfortable O: Vital Signs Temperature 98.5 F 04/27/20 04:15 Pulse Rate 78 04/27/20 04:15 Respiratory Rate 18 04/27/20 06:00 Blood Pressure 90/57 L 04/27/20 04:15 O2 Sat by Pulse Oximetry (%) 100 04/27/20 03:15 CBC, BMP 04/27/20 07:30 04/26/20 22:15 A/P s/p c section Doing well post op Continue current care. Zhou Cota MD
[2020-04-27] MEDS: IBUPROFEN 600 MG TABLET (FP) PO PRN (17:47)
[2020-04-27] MEDS: ACETAMINOPHEN 325 MG TABLET (FP) PO PRN (17:48)
[2020-04-27] MEDS: SIMETHICONE 80 MG TAB.CHEW (FP) PO PRN (17:49)
[2020-04-27] MEDS ORDERED: BISACODYL 10 MG SUPP.RECT RC PRN (23:21)
[2020-04-28] MEDS: SIMETHICONE 80 MG TAB.CHEW (FP) PO PRN ×4 (00:18→20:59)
[2020-04-28] MEDS: IBUPROFEN 600 MG TABLET (FP) PO PRN ×4 (00:18→20:58)
[2020-04-28] MEDS: ACETAMINOPHEN 325 MG TABLET (FP) PO PRN ×4 (00:18→20:58)
--- NOTE | 2020-04-28 10:21 | OP ---
DATE OF OPERATION: 04/27/2020 PREOPERATIVE DIAGNOSES: 1. A 24-year-old 4, para 3 at 37.4 weeks of gestation, prior section with scheduled repeat and desiring sterilization, presenting early latent labor, al frequently. 2. Gestational diabetic well controlled. POSTOPERATIVE DIAGNOSES: 1. A 24-year-old 4, para 3 at 37.4 weeks of gestation, prior section with scheduled repeat and desiring sterilization, presenting early latent labor, al frequently. 2. Gestational diabetic well controlled. PROCEDURE: Repeat low transverse section, bilateral salpingectomy. SURGEON: Cb Yoo MD MANAGER FASHION: URIAH Lujan ANESTHESIA: Spinal. ESTIMATED BLOOD LOSS: 700 mL. IV FLUIDS: 1700 mL of crystalloid. URINE OUTPUT: 500 mL of clear urine. COMPLICATIONS: None. FINDINGS: Lower abdominal scar consistent with prior section, moderate amount of subcutaneous adipose tissue. The fascia was slightly fibrotic and adherent to the underlying rectus muscles. The rectus muscles were fused to each other in the midline. No parietal peritoneal visceral adhesions at the point of entry. The lower uterine segment was not effaced. The bladder was slightly adherent to the lower uterine segment. in cephalic presentation. Clear amniotic fluid. Loose nuchal cord x1. Bilateral tubes and ovaries consistent with normal anatomy. Bladder dome, rectal muscle fascial interface were intact. PROCEDURE: The patient was taken to the operating room where anesthesia was found to be adequate. She was then prepped and draped in a normal sterile fashion. Appropriate timeout took place. Pfannenstiel skin incision was made with the scalpel following prior section scar. Incision was carried to the underlying fascia with the Bovie. Fascia was incised in the midline and extended laterally with sharp dissection. The underlying rectus muscles were dissected off sharply. Rectus muscles were elevated in the midline and dissected off sharply with the scalpel superiorly. Entry into the peritoneal cavity revealed the previously mentioned findings. Peritoneal incision was extended laterally with blunt and sharp dissection without difficulty. Bladder blade was placed and lower transverse uterine incision was made with a scalpel approximately 5 cm above the vesicouterine junction. The incision was extended laterally with blunt dissection. Amniotomy revealed clear amniotic fluid. The infant was delivered through the surgical incision with mild fundal pressure without difficulty. Umbilical cord was clamped and cut after delay. Samples for blood were obtained. The was handed off to the waiting NICU staff. The placenta was delivered manually and intact. The uterus was exteriorized through the surgical incision and the intrauterine cavity was cleared of all clots and debris. Uterine incision was reapproximated with 1-0 Polysorb running locked suture. Excellent structural reapproximation with 1 layer suture. One [id number] of the same suture was required in the midline to neutralize mild oozing as well as on right incisional corner. Excellent hemostasis was noted. No expanding hematomas. Attention then was redirected to the right fallopian tube which was excised by using the LigaSure instrument. Excellent surgical stump noted. Attention then was redirected to the contralateral fallopian tube which underwent the exact same procedure without difficulty. Excellent hemostasis was noted again. The uterus was internalized to the pelvic cavity and gutters were cleared of all clots and debris. Bladder dome and rectus muscle interface was examined and as noted above. The fascial incision was reapproximated with 0 Vicryl running nonlocked suture. Excellent structural reapproximation achieved and confirmed by digital palpation by the surgeon. Subcutaneous tissues were copiously irrigated and bleeders neutralized with Bovie cautery. Chromic 2-0 was utilized to reapproximate subcutaneous tissue and skin incision was reapproximated with 3-0 Monocryl subcuticular stitches. Excellent hemostasis at the end of the procedure. Patient tolerated the procedure well and went to the recovery room. Instrument count was reported as correct x2 by the staff. CB YOO MD [id number] [facility] CENTERShayne
--- NOTE | 2020-04-28 10:26 | PN ---
Post Progress Note - Subjective Subjective: no c/o pain scale 3-4/10 Post Day: 1 Type of Delivery: Repeat C/S Vital Signs: Vital Signs Temperature 98 F 04/28/20 09:55 Pulse Rate 80 04/28/20 09:55 Respiratory Rate 18 04/28/20 09:55 Blood Pressure 111/64 04/28/20 09:55 O2 Sat by Pulse Oximetry (%) 100 04/27/20 03:15 Breast Exam: Yes: Soft, Other (BF ). No: Engorged Uterus: Yes: Fundus Firm, Fundus below umbilicus, Non-tender Incision: Yes: Dressing dry and intact. No: Redness, Oozing Abdomen/GI: Yes: Abdomen soft, Passing flatus (bm not done ), Tolerating PO (tolerating diet ). No: Abdominal Distention, Tender Lochia: Yes: Rubra Lochia, amount: Moderate Extremities: Yes: Calves non-tender Perineum: Yes: Intact Activity: Ambulating - Labs Labs: CBC WBC 10.3 K/mm3 (4.0-10.0) H 04/27/20 07:30 RBC 3.74 M/mm3 (3.60-5.2) 04/27/20 07:30 Hgb 11.6 GM/dL (10.7-15.3) 04/27/20 07:30 Hct 34.7 % (32.4-45.2) 04/27/20 07:30 MCV 92.7 fl (80-96) 04/27/20 07:30 MCH 31.1 pg (25.7-33.7) 04/27/20 07:30 MCHC 33.5 g/dl (32.0-36.0) 04/27/20 07:30 RDW 13.4 % (11.6-15.6) 04/27/20 07:30 Plt Count 167 K/MM3 (134-434) 04/27/20 07:30 MPV 9.3 fl (7.5-11.1) 04/27/20 07:30 Absolute Neuts (auto) 7.5 K/mm3 (1.5-8.0) 04/27/20 07:30 Neutrophils % 72.7 % (42.8-82.8) 04/27/20 07:30 Lymphocytes % 20.3 % (8-40) 04/27/20 07:30 Monocytes % 6.5 % (3.8-10.2) 04/27/20 07:30 Eosinophils % 0.3 % (0-4.5) 04/27/20 07:30 Basophils % 0.2 % (0-2.0) 04/27/20 07:30 Nucleated RBC % 0 % (0-0) 04/27/20 07:30 Problem List - Problems (1) Status post section routine follow-up Code(s): Z39.2 - ENCOUNTER FOR ROUTINE FOLLOW-UP; Z98.891 - HISTORY OF UTERINE SCAR FROM PREVIOUS SURGERY Assessment/Plan stable plan ct po care encourage po fluids, ambulation , deep breathing
--- NOTE | 2020-04-29 08:45 | PN ---
Post Progress Note - Subjective Subjective: Pain controlled. No fevers/chills. Tolerating po, passing flatus. Lochia < menses Post Day: 2 Type of Delivery: Repeat C/S Vital Signs: Vital Signs Temperature 98.7 F 04/28/20 22:00 Pulse Rate 89 04/28/20 22:00 Respiratory Rate 18 04/28/20 22:00 Blood Pressure 128/79 04/28/20 22:00 O2 Sat by Pulse Oximetry (%) 100 04/28/20 21:00 Uterus: Yes: Fundus below umbilicus Incision: Yes: Dressing dry and intact Abdomen/GI: Yes: Abdomen soft, Tolerating PO Lochia: Yes: Rubra Lochia, amount: Small Extremities: Yes: Calves non-tender Perineum: Yes: Intact Activity: Ambulating - Labs Labs: CBC WBC 10.3 K/mm3 (4.0-10.0) H 04/27/20 07:30 RBC 3.74 M/mm3 (3.60-5.2) 04/27/20 07:30 Hgb 11.6 GM/dL (10.7-15.3) 04/27/20 07:30 Hct 34.7 % (32.4-45.2) 04/27/20 07:30 MCV 92.7 fl (80-96) 04/27/20 07:30 MCH 31.1 pg (25.7-33.7) 04/27/20 07:30 MCHC 33.5 g/dl (32.0-36.0) 04/27/20 07:30 RDW 13.4 % (11.6-15.6) 04/27/20 07:30 Plt Count 167 K/MM3 (134-434) 04/27/20 07:30 MPV 9.3 fl (7.5-11.1) 04/27/20 07:30 Absolute Neuts (auto) 7.5 K/mm3 (1.5-8.0) 04/27/20 07:30 Neutrophils % 72.7 % (42.8-82.8) 04/27/20 07:30 Lymphocytes % 20.3 % (8-40) 04/27/20 07:30 Monocytes % 6.5 % (3.8-10.2) 04/27/20 07:30 Eosinophils % 0.3 % (0-4.5) 04/27/20 07:30 Basophils % 0.2 % (0-2.0) 04/27/20 07:30 Nucleated RBC % 0 % (0-0) 04/27/20 07:30 Assessment/Plan 24yo s/p RLTCS, POD#2 Routine PP care PO pain control Labs reviewed OOB, ambulate D/C to home by POD#3 Sammy Cuevas MD
[2020-04-29 09:00] LABS: BASO % 0.3 % (0-2.0); EOS % 2.5 % (0-4.5); HEMATOCRIT 37.2 % (32.4-45.2); HEMOGLOBIN 12.8 GM/dL (10.7-15.3); LYMPH % 13.5 % (8-40); MCH 31.9 pg (25.7-33.7); MCHC 34.5 g/dl (32.0-36.0); MEAN CELL VOLUME 92.5 fl (80-96); MONO % 5.2 % (3.8-10.2); NEUT % 78.5 % (42.8-82.8); PLATELET COUNT 216 K/MM3 (134-434); RBC 4.02 M/mm3 (3.60-5.2); RDW 13.5 % (11.6-15.6); WHITE BLOOD COUNT 11.4 K/mm3 (4.0-10.0)
[2020-04-29 10:52] VITALS: BP 125/76; PULSE 88; TEMP 98
[2020-04-29] MEDS: ACETAMINOPHEN 325 MG TABLET (FP) PO PRN (11:17)
[2020-04-29] MEDS: IBUPROFEN 600 MG TABLET (FP) PO PRN (11:17)
[2020-04-29] MEDS: SIMETHICONE 80 MG TAB.CHEW (FP) PO PRN (11:18)
--- NOTE | 2020-04-30 19:54 | PATH ---
Surgical Pathology Report Patient Name: HENRIETTA REARDON [facility]. Rec. 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 PLACENTA, SECTION: 442 G THIRD TRIMESTER PLACENTA WITH TRIVASCULAR UMBILICAL CORD AND UNREMARKABLE PLACENTAL MEMBRANES. B. FALLOPIAN TUBE, LEFT, SALPINGECTOMY: UNREMARKABLE FALLOPIAN TUBE (INCLUDING FIMBRIATED END AND FULL LUMINAL PORTION). C. FALLOPIAN TUBE, RIGHT, SALPINGECTOMY: FALLOPIAN TUBE AND FOCAL ENDOSALPINGOSIS (INCLUDING FIMBRIATED END AND FULL LUMINAL PORTION). Electronically Signed Alva Baptiste M.D. Gross Description A. The specimen is received fresh labeled placenta and is a 442 gram, 15.0 x 14.5 x 3.0 cm. placenta with attached membranes and umbilical cord. The attached membranes are sahu, translucent with focal opacities and insert marginally. The umbilical cord measures 27 cm. in length and averages 1.4 cm. in diameter. The cord inserts eccentrically, 4.5 cm. to the nearest margin. No true knots or strictures are identified. Cut surface of the umbilical cord reveals 3 vessels. The surface is ma-blue with minimal fibrin deposition and appropriate caliber vessels. The maternal surface is red-brown with focal defects. Sectioning reveals red-brown, spongy parenchyma. No lesions are identified. Glue Mixer sections are submitted in three cassettes as follows: 1- membrane rolls and umbilical cord; 2-3- full thickness sections of placenta. B. Received in formalin labeled "left tube," is a 5.5 cm in length fimbriated fallopian tube. The outer surface is sahu-wood and smooth. Sectioning reveals an unremarkable lumen. Glue Mixer sections are submitted in 2 cassettes as follows: 1-fimbria; 2-cross sections of fallopian tube. C. Received in formalin labeled "right tube," is a 6 cm in length fimbriated fallopian tube. The outer surface is wood purple and smooth. Sectioning reveals an unremarkable lumen. Glue Mixer sections are submitted in 2 cassettes as follows: 1-fimbria; 2-cross sections of fallopian tube. [facility]
== END 2020-04-29 12:03 | disposition home or self-care (01) | DRG 540 ==
LOC: JDEL 20:20 → JLDR 22:35 → J3W 04-27 04:12
PROVIDERS: ADMIT Student in an Organized Health Care Education/Training Program; ATTEND Student in an Organized Health Care Education/Training Program
PROC: 10D00Z1 Extraction of Products of Conception, Low, Open Approach (ICD-10-PCS; principal; 2020-04-27)
PROC: 0UB70ZZ Excision of Bilateral Fallopian Tubes, Open Approach (ICD-10-PCS; 2020-04-27)
DX: O82 Encounter for cesarean delivery without indication (principal); Z3A.37 37 weeks gestation of pregnancy; O24.429 Gestational diabetes mellitus in childbirth, unspecified control; O34.211 Maternal care for low transverse scar from previous cesarean delivery; Z37.0 Single live birth; O69.81X0 Labor and delivery complicated by cord around neck, without compression, not applicable or unspecified; Z30.2 Encounter for sterilization
CPT/HCPCS: 36415; 80048; 82962; 85025; 85610; 85730; 86780; 86850; 86900; 86901; 88302-TC; 88307-TC; U0003

== ENCOUNTER 2020-05-18 14:00 | Emergency (ER) | payer OTHER ==
--- NOTE | 2020-05-18 14:04 | PDOC ---
Rapid Medical Evaluation Time Seen by Provider: 05/18/20 14:01 Medical Evaluation: Allergies Allergy/AdvReac Type Severity Reaction Status Date / Time No Known Allergies Allergy Verified 04/06/20 14:12 05/18/20 14:01 I have performed a brief in-person evaluation of this patient. CC: left arm pain s/p venipuncture 3 weeks ago PE: tenderness and swelling to left AC. Orders: nothing Patient will proceed to ED for further evaluation. Discharge Disposition - Diagnosis Left arm pain - Referrals - Patient Instructions - Post Discharge Activity
[2020-05-18 14:06] VITALS: BP 111/64; PULSE 75; TEMP 99; BMI 29.0
--- NOTE | 2020-05-18 14:22 | PDOC ---
History of Present Illness - General Chief Complaint: Pain, Acute Stated Complaint: SWOLLEN ARM Time Seen by Provider: 05/18/20 14:01 History Source: Patient Exam Limitations: No Limitations - History of Present Illness Initial Comments: 05/18/20 14:18 Patient is a 24-year-old female who presents to the ED with complaint of left upper extremity pain and swelling after having an IV from when she had a C- section 3 weeks ago. She states she had an IV in her left antecubital region and since having it removed she has had pain in that region. She states her swelling in that region as well. She admits that the pain is the worst with full extension. She denies any numbness or tingling. She denies any fevers or chills. She has applied ice and heat without any relief. The patient denies any past medical history or allergies to medications. Past History - Medical History Allergies/Adverse Reactions: Allergies Allergy/AdvReac Type Severity Reaction Status Date / Time No Known Allergies Allergy Verified 04/06/20 14:12 Home Medications: Ambulatory Orders Vitamins (Sjr) - 1 tab PO DAILY 03/26/20 Insulin NPH [Novolin N] 14 unit SQ HS 04/06/20 Acetaminophen [Tylenol] 650 mg PO Q6H PRN #30 capsule MDD 5 04/26/20 Ibuprofen 600 mg PO Q6H PRN #30 tablet 04/26/20 Oxycodone HCl 5 mg PO Q6H PRN 3 Days #12 capsule MDD 5 04/30/20 Oxycodone HCl 5 mg PO Q6H PRN 3 Days #12 capsule MDD 5 04/30/20 Asthma: No Cancer: No Cardiac Disorders: No COPD: No Diabetes: No HTN: No Seizures: No Thyroid Disease: No - Surgical History Abdominal Surgery: Yes Appendectomy: Yes Cholecystectomy: Yes - Reproductive History Is Patient Now?: No (#): 6 Para: 3 Cervical CA: No Dysfunctional Uterine Bleeding: No Ectopic : No Endometrial CA: No Polycystic Ovaries: No Therapeutic (s) & number: Yes (1) Tubal Ligation: No Spontaneous : 1 - Immunization History Immunization Up to Date: No - Psycho-Social/Smoking History Smoking Status: No Smoking History: Never smoked Have you smoked in the past 12 months: No Number of Cigarettes Smoked Daily: 0 Information on smoking cessation initiated: No - Substance Abuse Hx (Audit-C & DAST Scrn) How often the patient has a drink containing alcohol: Never Score: In Men: 4 or > Positive; In Women: 3 or > Positive: 0 Screen Result (Pos requires Nsg. Audit-10AR): Negative In the last yr the pt used illegal drug/Rx for NonMed reason: No Score: Yes response is considered Positive: 0 Screen Result (Positive result requires Nsg. DAST-10): Negative Review of Systems - Review of Systems Comments:: 05/18/20 14:19 - Review of Systems Able to Perform ROS?: Yes Constitutional: No: Fever, Chills, Loss of Appetite, Night Sweats, Weakness HEENTM: No: Eye Pain, Vision changes, Ear Pain, Throat Pain, Throat Swelling, Mouth Pain, Difficulty Swallowing Respiratory: No: Cough, Shortness of Breath, Wheezing, Sputum Production Cardiac (ROS): No: Chest Pain, Chest Tightness, Palpitations, Irregular Heart Beat, Edema ABD/GI: No: Nausea, Vomiting, Abdominal Pain, Diarrhea : No Dysuria, No Hematuria, No Frequency, No Urgency, No Vaginal Discharge/Pain, No Penile Discharge/Pain Musculoskeletal: No: Muscle Pain, Back Pain, Joint Pain, Muscle Weakness, Neck Pain; left upper extremity AC area swelling and pain Integumentary: No: Lesions, Rash Neurological: No: Headache, Numbness, Tingling, Weakness, Speech Difficulties *Physical Exam - Vital Signs Last Vital Signs Temp Pulse Resp BP Pulse Ox 99 F 75 18 111/64 98 05/18/20 14:03 05/18/20 14:03 05/18/20 14:03 05/18/20 14:03 05/18/20 14:03 - Physical Exam 05/18/20 14:20 - Physical Exam General Appearance: Nourished, Appropriately Dressed, No Distress HEENT: EOMI, Normal Voice, Hearing Grossly Normal Neck: Supple, No Lymphadenopathy (R), No Lymphadenopathy (L), No Rigidity, No Decreased range of motion Respiratory/Chest: Lungs Clear, Normal Breath Sounds. No Respiratory Distress, No Accessory Muscle Use Cardiovascular: Regular Rhythm, Regular Rate, S1, S2 Gastrointestinal/Abdominal: Normal Bowel Sounds, Soft. Non-tender, No Guarding, No Rebound, No Rigidity Musculoskeletal: Normal Inspection. No Decreased Range of Motion; there is a palpable firmness to the left medial antecubital region with tenderness to palpation. There is surrounding ecchymosis appreciated. There is mild swelling surrounding the region. Symptoms are likely consistent with a superficial thrombophlebitis. Radial and brachial pulses palpable. Brisk capillary refill distally. Sensation intact distally. Compartments soft. Extremity: Normal Capillary Refill, Normal Inspection Integumentary: Normal Color, Dry. 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 Plan: -Symptoms likely secondary to a superficial thrombophlebitis -Left upper extremity duplex for further evaluation -Will reassess 05/18/20 17:45 The patient has had an ultrasound Doppler of her left upper extremity which shows a possible superficial thrombophlebitis in the antecubital region. The patient will be discharged and can apply warm compresses to the area. She is breast-feeding so she has been advised to avoid Motrin if possible. She will follow-up with her primary doctor within 1 to 2 days for repeat evaluation. She understands and agrees with this treatment plan and she is stable for discharge. Discharge - Discharge Information Problems reviewed: Yes Clinical Impression/Diagnosis: Left arm pain Superficial thrombophlebitis Qualifiers: Superficial thrombophlebitis-Involved body area: upper extremity Laterality: left Qualified Code(s): I80.8 - Phlebitis and thrombophlebitis of other sites Condition: Stable Disposition: HOME - Follow up/Referral - Patient Discharge Instructions Patient Printed Discharge Instructions: DI for Superficial Thrombophlebitis Additional Instructions: Apply warm compresses to the area as this will help dissolve the superficial blood clot. You can take Tylenol for pain but should avoid Motrin since you are breast-feeding. Follow-up with your primary doctor within 1 to 2 days for repeat evaluation. - Post Discharge Activity
== END 2020-05-18 17:51 | disposition home or self-care (01) ==
LOC: JERFT 14:00
DX: M79.602 Pain in left arm (principal); I80.8 Phlebitis and thrombophlebitis of other sites
CPT/HCPCS: 93971; 99284-25

== ENCOUNTER 2022-09-17 18:25 | Emergency (ER) | payer OTHER ==
[2022-09-17 18:35] VITALS: BMI 27.6
[2022-09-17] MEDS ORDERED: SODIUM CHLORIDE 0.9% 500 ML INFUS.BAG IV ONE (21:23)
[2022-09-17] MEDS ORDERED: KETOROLAC TROMETHAMINE 30 MG/1 ML VIAL IVPUSH ONE (21:23)
[2022-09-17] MEDS ORDERED: ONDANSETRON 4 MG/2 ML VIAL IVPUSH ONE (21:23)
[2022-09-17] MEDS ORDERED: KETOROLAC TROMETHAMINE 30 MG/1 ML VIAL ONE (21:42)
[2022-09-17] MEDS ORDERED: ONDANSETRON 4 MG/2 ML VIAL ONE (21:42)
[2022-09-17 22:29] LABS: BASO % 0.8 % (0-2.0); EOS % 1.8 % (0-4.5); HEMATOCRIT 33.3 % (32.4-45.2); HEMOGLOBIN 10.3 GM/dL (10.7-15.3); LYMPH % 33.4 % (8-40); MCH 21.1 pg (25.7-33.7); MCHC 30.9 g/dl (32.0-36.0); MEAN CELL VOLUME 68.2 fl (80-96); MEAN PLT VOLUME 8.4 fl (7.5-11.1); MONO % 5.5 % (3.8-10.2); NEUT % 58.5 % (42.8-82.8); PLATELET COUNT 466 10^3/uL (134-434); RBC 4.89 M/mm3 (3.60-5.2); RDW 18.1 % (11.6-15.6); WHITE BLOOD COUNT 8.3 K/mm3 (4.0-10.0)
[2022-09-17 22:34] LABS: EPI CELLS 12 /uL (0-25.1); HYALINE CASTS 0 /uL (0-3.1); URINE APPEARANCE TURBID; URINE BACTERIA 554 /uL (0-1359); URINE BILIRUBIN NEGATIVE (NEGATIVE); URINE COLOR YELLOW; URINE GLUCOSE (UA) NEGATIVE (NEGATIVE); URINE KETONE NEGATIVE (NEGATIVE); URINE LEUK ESTERASE 3+ (NEGATIVE); URINE NITRITE NEGATIVE (NEGATIVE); URINE PROTEIN NEGATIVE (NEGATIVE); URINE RBC 16 /uL (0-23.9); URINE UROBILINOGEN 0.2 mg/dL (0.2-1.0); URINE WBC 1363 /uL (0-25.8)
[2022-09-17 23:01] LABS: ANISOCYTOSIS 3+; MACROCYTOSIS 0; OVALOCYTE 1+; TARGET CELLS 1+
[2022-09-17] MEDS ORDERED: CEFTRIAXONE 1 GM in DEXTROSE 5%-WATER - 100 ML IVPB ONE (23:18)
[2022-09-17] MEDS ORDERED: CEFTRIAXONE 1 GM/50 ML BAG ONE (23:27)
[2022-09-18 00:07] LABS: CHLORIDE 103 mmol/L (98-107); SODIUM 134 mmol/L (136-145)
[2022-09-18 00:09] LABS: ALBUMIN 3.8 g/dl (3.4-5.0); CALCIUM 9.9 mg/dL (8.5-10.1); LIPASE 143 U/L (73-393)
[2022-09-18 00:10] LABS: BLOOD UREA NITROGEN 9.1 mg/dL (7-18); CO2 26 mmol/L (21-32); GLUCOSE,RANDOM 81 mg/dL (74-106)
[2022-09-18 00:12] LABS: CREATININE 0.7 mg/dL (0.55-1.3)
[2022-09-18 00:15] LABS: ALK PHOS 99 U/L (45-117); BILIRUBIN,TOTAL 0.2 mg/dL (0.2-1); TOT PROT 8.4 g/dl (6.4-8.2)
[2022-09-18 00:17] LABS: ANION GAP 5 MMOL/L (8-16); SGOT/AST 189 U/L (15-37); SGPT/ALT 62 U/L (13-61)
[2022-09-18 01:35] VITALS: BP 109/52; PULSE 68; RESP 16; TEMP 97.7
[2022-09-18 01:36] LABS: CHLORIDE 106 mmol/L (98-107); SODIUM 140 mmol/L (136-145)
[2022-09-18 01:38] LABS: ALBUMIN 3.1 g/dl (3.4-5.0); ANION GAP 8 MMOL/L (8-16); BLOOD UREA NITROGEN 7.6 mg/dL (7-18); CALCIUM 9.1 mg/dL (8.5-10.1); CO2 26 mmol/L (21-32); GLUCOSE,RANDOM 114 mg/dL (74-106)
[2022-09-18 01:41] LABS: CREATININE 0.6 mg/dL (0.55-1.3); SGOT/AST 22 U/L (15-37); SGPT/ALT 36 U/L (13-61)
[2022-09-18 01:43] LABS: BILIRUBIN,TOTAL < 0.1 mg/dL (0.2-1)
[2022-09-18 01:44] LABS: ALK PHOS 83 U/L (45-117)
== END 2022-09-18 02:17 | disposition home or self-care (01) ==
LOC: JER 18:25
PROC: 3E03329 Introduction of Other Anti-infective into Peripheral Vein, Percutaneous Approach (ICD-10-PCS; principal; 2022-09-17)
PROC: 3E0333Z Introduction of Anti-inflammatory into Peripheral Vein, Percutaneous Approach (ICD-10-PCS; 2022-09-17)
PROC: 3E033GC Introduction of Other Therapeutic Substance into Peripheral Vein, Percutaneous Approach (ICD-10-PCS; 2022-09-17)
DX: N10 Acute pyelonephritis (principal)
CPT/HCPCS: 36415; 74177-TC; 76830-TC; 80053; 81003; 82550; 82553; 83690; 84484; 84703; 85025; 87086; 87491; 87591; 93005; 93010; 99285-25; Q9967

== ENCOUNTER 2022-09-19 17:05 | Emergency (ER) | payer OTHER ==
[2022-09-19 17:42] VITALS: BP 106/69; PULSE 73; RESP 18; TEMP 98.4; BMI 27.6
== END 2022-09-19 18:15 | disposition home or self-care (01) ==
LOC: FER 17:05
DX: K59.00 Constipation, unspecified (principal)
CPT/HCPCS: 99282-25

== ENCOUNTER 2023-06-01 05:27 | Emergency (ER) | payer OTHER ==
[2023-06-01 05:46] VITALS: BMI 29.2
[2023-06-01] MEDS ORDERED: LORazepam 2 MG/ML SDV VIAL IVPUSH ONE (06:24)
[2023-06-01] MEDS ORDERED: LORazepam 2 MG/ML SDV VIAL IM ONE (06:28)
[2023-06-01] MEDS ORDERED: HALOPERIDOL LACTATE 5 MG/ML IM ONE ×2 (06:40→06:44)
[2023-06-01 08:53] LABS: BASO % 0.5 % (0-2.0); EOS % 0.1 % (0-4.5); HEMATOCRIT 26.8 % (32.4-45.2); LYMPH % 18.6 % (8-40); MCHC 29.8 g/dl (32.0-36.0); MEAN CELL VOLUME 60.8 fl (80-96); MEAN PLT VOLUME 7.3 fl (7.5-11.1); MONO % 4.7 % (3.8-10.2); NEUT % 76.1 % (42.8-82.8); PLATELET COUNT 404 10^3/uL (134-434); RBC 4.41 M/mm3 (3.60-5.2); RDW 18.3 % (11.6-15.6); WHITE BLOOD COUNT 7.6 K/mm3 (4.0-10.0)
[2023-06-01 08:54] LABS: MCH 18.1 pg (25.7-33.7)
[2023-06-01 08:57] LABS: POTASSIUM 4.2 mmol/L (3.5-5.1)
[2023-06-01 08:59] LABS: CALCIUM 7.8 mg/dL (8.5-10.1)
[2023-06-01 09:00] LABS: ALBUMIN 3.6 g/dl (3.4-5.0); BLOOD UREA NITROGEN 6.5 mg/dL (7-18)
[2023-06-01 09:03] LABS: CREATININE 0.8 mg/dL (0.55-1.3)
[2023-06-01 09:04] LABS: BILIRUBIN,TOTAL 0.2 mg/dL (0.2-1); TOT PROT 7.1 g/dl (6.4-8.2)
[2023-06-01 09:32] LABS: ANISOCYTOSIS 2+; MACROCYTOSIS 0
[2023-06-01 14:21] LABS: EPI CELLS 2 /uL (0-25.1); HYALINE CASTS 0 /uL (0-3.1); PH,URINE 5.5 (5.0-8.0); URINE APPEARANCE CLEAR; URINE BACTERIA 1597 /uL (0-1359); URINE BILIRUBIN NEGATIVE (NEGATIVE); URINE COLOR YELLOW; URINE GLUCOSE (UA) NEGATIVE (NEGATIVE); URINE KETONE NEGATIVE (NEGATIVE); URINE LEUK ESTERASE NEGATIVE (NEGATIVE); URINE NITRITE POSITIVE (NEGATIVE); URINE PROTEIN NEGATIVE (NEGATIVE); URINE RBC 13 /uL (0-23.9); URINE UROBILINOGEN 0.2 mg/dL (0.2-1.0); URINE WBC 5 /uL (0-25.8)
[2023-06-01 14:38] LABS: PHENCYCLIDINE,URINE NEGATIVE (NEGATIVE); URINE BENZODIAZEPINES NEGATIVE (NEGATIVE)
[2023-06-01 14:39] LABS: METHADONE, UR NEGATIVE (NEGATIVE); OPIATES, URI NEGATIVE (NEGATIVE); URINE BARBITURATES NEGATIVE (NEGATIVE)
[2023-06-01 14:44] LABS: COCAINE, UR POSITIVE (NEGATIVE); URINE AMPHETAMINES NEGATIVE (NEGATIVE)
[2023-06-01 16:41] VITALS: BP 122/65; PULSE 65; RESP 16; TEMP 100
== END 2023-06-01 17:04 | disposition home or self-care (01) ==
LOC: JER 05:27
PROC: 3E023GC Introduction of Other Therapeutic Substance into Muscle, Percutaneous Approach (ICD-10-PCS; principal; 2023-06-01)
PROC: 3E023GC Introduction of Other Therapeutic Substance into Muscle, Percutaneous Approach (ICD-10-PCS; 2023-06-01)
DX: R11.10 Vomiting, unspecified (principal); F10.90 Alcohol use, unspecified, uncomplicated; F14.90 Cocaine use, unspecified, uncomplicated
CPT/HCPCS: 36415; 70450-TC; 80053; 80307; 81003; 84703; 85025; 93005; 93010; 99285-25; G0480